=== PATIENT | female | born 1945 | race Caucasian/White ===

== ENCOUNTER 2017-06-28 19:07 | Inpatient (IN) | payer MEDICARE ==
[2017-06-28] MEDS ORDERED: Lorazepam 2 MG/ML VIAL ONE (20:42)
[2017-06-28 20:45] LABS: #Basophils 0.1 thou/uL (0.0-0.2); #Lymphocytes 1.9 thou/uL (1.20-3.40); #Monocytes 0.3 thou/uL (0.11-0.59); #Neutrophils 10.6 thou/uL (1.40-6.50); %Basophils 0.5 % (0.0-1.0); %Lymphocytes 14.6 % (21.0-51.0); %Monocytes 2.6 % (0.0-10.0); Hematocrit 38.9 % (36.0-47.0); Red Blood Cell (RBC) Count 4.58 mill/uL (4.20-5.40); White Blood Cell (WBC) Count 12.9 thou/uL (4.8-10.8)
[2017-06-28 21:00] LABS: Anion Gap 18 mmol/L (10-20); BUN (Urea Nitrogen) 9 mg/dL (9.8-20.1); Calc. Creatinine Clearance 0 mL/min (70-130); Calcium 9.2 mg/dL (7.8-10.44); Carbon Dioxide 26 mmol/L (23-31); Chloride 75 mmol/L (98-107); Estimated GFR-MDRD Greater than 90
[2017-06-28 21:04] LABS: Troponin I Less than 0.010 ng/mL (< 0.028)
--- NOTE | 2017-06-28 21:29 | RAD ---
TWO VIEWS CHEST 06/28/17 PROVIDED CLINICAL HISTORY: Cough and congestion. FINDINGS: Comparison 06/13/15. The cardiac silhouette appears enlarged. There is no focal consolidation, pleural fluid or pneumothor ax apparent. IMPRESSION: No evidence for an acute cardiopulmonary process. POS: [facility]
[2017-06-28 23:00] LABS: Bilirubin Negative (Negative); Blood, Urine Negative (Negative); Glucose, Urine (Dipstick) Negative (Negative); Ketone, Urine Negative (Negative); Nitrite Negative (Negative); Protein, Urine (Dipstick) Negative (Neg-Trace); Urobilinogen 0.2 mg/dL (0.2-1.0)
[2017-06-28 23:15] LABS: Anion Gap 16 mmol/L (10-20); BUN (Urea Nitrogen) 8 mg/dL (9.8-20.1); Calc. Creatinine Clearance 0 mL/min (70-130); Calcium 8.5 mg/dL (7.8-10.44); Carbon Dioxide 25 mmol/L (23-31); Chloride 80 mmol/L (98-107); Estimated GFR-MDRD Greater than 90
[2017-06-29] MEDS ORDERED: Ondansetron ODT 4 MG TAB SL PRN (04:48)
[2017-06-29] MEDS ORDERED: Sodium Chloride 0.9% 1,000 ML IV SCH (04:48)
[2017-06-29] MEDS ORDERED: Ondansetron HCl/PF 4 MG/2 ML Vial IVP PRN ×2 (04:48→08:06)
[2017-06-29 05:01] VITALS: BMI 35.2
[2017-06-29 07:48] LABS: Anion Gap 10 mmol/L (10-20); BUN (Urea Nitrogen) 8 mg/dL (9.8-20.1); Calc. Creatinine Clearance 114 mL/min (70-130); Calcium 8.9 mg/dL (7.8-10.44); Carbon Dioxide 29 mmol/L (23-31); Chloride 87 mmol/L (98-107); Estimated GFR-MDRD Greater than 90
[2017-06-29] MEDS ORDERED: Calcium Carbonate 500 MG ChewTAB PO PRN (08:06)
[2017-06-29] MEDS ORDERED: Ondansetron ODT 4 MG TAB PO PRN (08:06)
[2017-06-29] MEDS ORDERED: Nitroglycerin 0.4 MG TAB (25 Tab Bottle) PO PRN (08:06)
[2017-06-29] MEDS ORDERED: Senokot 8.6 MG TAB PO PRN (08:06)
[2017-06-29] MEDS ORDERED: 1/2 NS w/KCL 20 mEq 1,000 ML IV SCH ×2 (08:15)
[2017-06-29 08:39] LABS: Troponin I 0.013 ng/mL (< 0.028)
[2017-06-29 08:49] LABS: Magnesium 1.9 mg/dL (1.6-2.6); Phosphorus 2.9 mg/dL (2.3-4.7)
[2017-06-29] MEDS ORDERED: Famotidine 20 MG TAB PO SCH (09:00)
[2017-06-29] MEDS ORDERED: Docusate 100 MG CAP PO SCH (09:00)
[2017-06-29] MEDS ORDERED: Dextrose 5% in Water 1,000 ML IV SCH (10:30)
--- NOTE | 2017-06-29 10:33 | CON ---
DATE OF CONSULTATION: 06/29/2017 REASON FOR CONSULTATION: Hyponatremia. HISTORY OF PRESENT ILLNESS: This is a very pleasant 72-year-old female who presented to the hospital for lightheadedness. The patient was noted to have a sodium of 115 yesterday which increased to 123 , so I was consulted. The patient denies headache, numbness, tingling or weakness. Denies any nause a, vomiting or chest pain. 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 SOCIAL HISTORY: No alcohol or drug use. FAMILY HISTORY: Negative for ESRD. ALLERGIES: Reviewed. MEDICATIONS: List reviewed. REVIEW OF SYSTEMS: A 15-point review of systems was performed and negative except positives noted ab ove. GENERAL: Weakness- HEAD: Headache- NECK: No swelling or lumps. NOSE: No epistaxis or discharge. EYES: No diplopia or pain. RESPIRATORY: Dyspnea- CARDIOVASCULAR: Chest pain- GASTROINTESTINAL: Nausea- /EATING DISORDER SPECIALIST: Hematuria- MUSCULOSKELETAL: No joint pain. NEUROPSYCHIATIC SYSTEMS: No suicidal ideation. No ideation. SKIN: Denies any rash or ulcer. CONSTITUTIONAL: No fever or chills. PHYSICAL EXAMINATION: GENERAL: Patient is awake, alert. VITAL SIGNS: Afebrile, pulse 75, breathing 16, blood pressure 107/47. OBJECTIVE: See above. Awake, alert, in no acute distress. GENERAL APPEARANCE AND MENTAL STATUS: Fair. HEAD/NECK: Normocephalic. Atraumatic. EYES: EOMI. No deformity. EARS: Clear. No ulcers. NOSE: Intact. No lesions. MOUTH: Clear. No discharge. THROAT: Clear. No exudate. LUNGS: Clear. No crackles. CARDIAC: S1, S2. No rub. ABDOMEN: Benign. BS+. GENITALIA/RECTUM: Fierro absent. BACK/EXTREMITIES: Edema 0+ Ulcer- NEUROLOGICAL: Alert and motor intact. SKIN: Rash- Bruise- LYMPHATICS: Edema- Ulcer- LABORATORY: Sodium 123. 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 Would recommend fluid restriction. I would recommend holding off on IV f luids and recheck the sodium at 4 p.m. The labs were drawn at 7:00 a.m. and I was consulted at 10:[address] Hampton. Please note the previous sodium at 11:00 p.m. last night was 107, so the patient has corrected sodium within reach. I would not correct the sodium any further. If the sodium incre ases any further I will start the patient on D5. Prognosis is very poor.
[2017-06-29] MEDS ORDERED: Dextrose 5% in Water 500 ML IV SCH (11:30)
[2017-06-29 11:51] LABS: Osmolality, Urine 72 mOsm/kg (300-900)
[2017-06-29 11:54] LABS: Sodium, Urine Less than 20 mmol/L (Not Available)
[2017-06-29 12:32] LABS: Anion Gap 14 mmol/L (10-20); BUN (Urea Nitrogen) 7 mg/dL (9.8-20.1); Calc. Creatinine Clearance 108 mL/min (70-130); Calcium 9.4 mg/dL (7.8-10.44); Carbon Dioxide 25 mmol/L (23-31); Chloride 88 mmol/L (98-107); Estimated GFR-MDRD Greater than 90
[2017-06-29] MEDS ORDERED: Amlodipine 5 MG TAB PO SCH (13:00)
[2017-06-29] MEDS ORDERED: Potassium Chloride 10 MEQ TAB PO SCH (13:45)
--- NOTE | 2017-06-29 13:47 | HP ---
DATE OF ADMISSION: 06/29/2017 PRIMARY CARE PHYSICIAN: Dr. Michele. CHIEF COMPLAINT: Generalized weakness. CODE STATUS: FULL CODE. SURROGATE DECISION-MAKER: Patient makes her own decisions with the help of her family. History obta ined from the patient and the at the bedside. HISTORY OF PRESENT ILLNESS: Patient is a 72-year-old female with hypertension, on HCTZ with recent u pper respiratory tract infection, presented to the emergency room with above complaints. Over the last 10 days, patient had upper respiratory tract infection along with sinus tenderness and headache. Her symptoms progressively got worse for which she was evaluated by her primary care physi jackelyn 3 days ago and was started on azithromycin with the steroids. Her sinus tenderness somewhat imp roved after the antibiotics. However, her generalized weakness and fatigue progressively got worse. She has not been eating and drinking well over the past couple of days. She denies any fevers, chil ls. She had nausea; however, denies any vomiting. She has chronically loose stool from IBS, which h as not changed recently. She denied any recent immobilization, travel, chest pain or palpitations. In the emergency room, her workup was consistent with hyponatremia with sodium of 115. Her chest x-r ay was negative for infiltrate. EKG showed sinus rhythm without significant ST-T wave changes. She received Ativan 1 mg with 1 liter IV fluids in the emergency room. PAST MEDICAL HISTORY: 1. Hypertension. 2. IBS. 3. Pneumonia x4. PAST SURGICAL HISTORY: 1. Removal of the right kidney. 2. Cholecystectomy. 3. Tonsillectomy. 4. Appendectomy. 5. Tubal ligation. 6. [place] teeth removal. 7. Left knee surgery in 2011 for meniscus repair. ALLERGIES: The patient is allergic to PENICILLIN and SULFA. HOME MEDICATIONS: Avapro 150 mg daily, amlodipine 10 mg daily, clonidine was started 2 days ago by h er PCP due to elevated blood pressure, azithromycin 250 mg daily, Nexium 40 mg daily, HCTZ 12.5 mg da mallory, and Reglan 5 mg p.o. before meals. SOCIAL HISTORY: Patient currently lives at home. No smoking, alcohol or drug use. FAMILY HISTORY: Father with heart disease. REVIEW OF SYSTEMS: The following complete review of systems was negative, unless otherwise mentioned in the HPI or below: Constitutional: Weight loss or gain, ability to conduct usual activities. Skin: Rash, itching. Eyes: Double vision, pain. ENT/Mouth: Nose bleeding, neck stiffness, pain, tenderness. Cardiovascular: Palpitations, dyspnea on exertion, orthopnea. Respiratory: Shortness of breath, wheezing, cough, hemoptysis, fever or night sweats. Gastrointestinal: Poor appetite, abdominal pain, heartburn, nausea, vomiting, constipation, or diarr hea. Genitourinary: Urgency, frequency, dysuria, nocturia. Musculoskeletal: Pain, swelling. Neurologic/Psychiatric: Anxiety, depression. Allergy/Immunologic: Skin rash, bleeding tendency. PHYSICAL EXAMINATION: VITAL SIGNS: In the emergency room showed temperature 98.2, respirations 18, pulse of 86, blood pres sure of 133/106 with O2 saturation 97% on room air. GENERAL: A 72-year-old female in no apparent distress, feels slightly better. HEENT: Head is atraumatic, normocephalic. Sclerae are anicteric. Moist mucous membranes. No oral lesion. There is some erythema over the pharynx noted. NECK: Supple, no JVD, no lymph nodes. LUNGS: Clear to auscultation bilaterally. HEART: S1 and S2 present. Regular rate and rhythm. No rubs or gallops. ABDOMEN: Soft, nontender, bowel sounds present. EXTREMITIES: No edema or calf tenderness. NEUROLOGIC: Grossly nonfocal, moves all four extremities. Power was 5/5 in all extremities. Finger -to-nose and [id number] test was normal. SKIN: Warm and dry. LYMPH NODES: No palpable lymph nodes in the neck. PERIPHERAL VASCULAR: Radial pulses palpable bilaterally. MUSCULOSKELETAL: No joint swelling or tenderness. LABORATORY DATA AND IMAGING DATA: Laboratory findings as discussed above. Last sodium was 124 with potassium 3.3. Cortisol was 13.9. BNP 42.6. Troponins were normal. TSH was normal. EKG by my rev iew showed sinus rhythm with left axis deviation without significant ST-T wave changes. Chest x-ray by my review was negative for infiltrate. IMPRESSION: 1. Hypotonic hyponatremia. Serum osmolarity was 252. Multifactorial. Probably secondary to poor o ral intake in addition to hydrochlorothiazide. 2. Hypokalemia. 3. Dehydration. 4. Obesity with body mass index of 35.2 5. Recent upper respiratory tract infection on azithromycin. 6. Irritable bowel syndrome. 7. Leukocytosis with WBC of 12.9, probably secondary to upper respiratory tract infection. Urinalys is was negative. 8. Hypertension. 9. Gastroesophageal reflux disease. PLAN: 1. The patient will be monitored in the telemetry unit. We will continue azithromycin that was star lyssa by a PCP 2 to 3 days ago. Replace potassium. Her sodium has been corrected too fast. For this reason, we changed the fluid to D5 water. Nephrology consult. We will resume amlodipine for blood p ressure and hold HCTZ and Avapro for now. P.r.n. antihypertensives. 2. Deep venous thrombosis prophylaxis. 3. Plan of care was discussed with the patient and the family in detail and they stated pérez ramirez
[2017-06-29 15:22] LABS: Anion Gap 12 mmol/L (10-20); BUN (Urea Nitrogen) 9 mg/dL (9.8-20.1); Calc. Creatinine Clearance 103 mL/min (70-130); Calcium 9.1 mg/dL (7.8-10.44); Carbon Dioxide 32 mmol/L (23-31); Chloride 89 mmol/L (98-107); Estimated GFR-MDRD Greater than 90
[2017-06-29] MEDS ORDERED: Metoclopramide HCl 10 MG TAB PO SCH (17:00)
[2017-06-29] MEDS: Potassium Chloride 10 MEQ TAB PO SCH (17:41)
[2017-06-29] MEDS: Dextrose 5% in Water 500 ML IV SCH ×2 (17:41→22:17)
[2017-06-29 19:21] LABS: Anion Gap 14 mmol/L (10-20); BUN (Urea Nitrogen) 8 mg/dL (9.8-20.1); Calc. Creatinine Clearance 91 mL/min (70-130); Carbon Dioxide 26 mmol/L (23-31); Chloride 95 mmol/L (98-107); Estimated GFR-MDRD 83
[2017-06-29] MEDS: guaiFENesin ER 600 MG TAB PO SCH (21:36)
[2017-06-29] MEDS: Amlodipine 5 MG TAB PO SCH (21:36)
[2017-06-29] MEDS: Enoxaparin Sodium 40 MG/0.4 ML SYRINGE SC SCH (21:37)
[2017-06-29] MEDS ORDERED: Desmopressin Acetate 4 mcg/ml (1ml Chg) 10ml Vial SC SCH (21:45)
[2017-06-29] MEDS: D5 1/4 NS 1,000 ML IV SCH (21:56)
[2017-06-29 22:36] LABS: Anion Gap 13 mmol/L (10-20); BUN (Urea Nitrogen) 10 mg/dL (9.8-20.1); Calc. Creatinine Clearance 101 mL/min (70-130); Calcium 9.1 mg/dL (7.8-10.44); Carbon Dioxide 28 mmol/L (23-31); Chloride 95 mmol/L (98-107); Estimated GFR-MDRD Greater than 90
[2017-06-29 23:17] LABS: Anion Gap 11 mmol/L (10-20); BUN (Urea Nitrogen) 10 mg/dL (9.8-20.1); Calc. Creatinine Clearance 108 mL/min (70-130); Calcium 8.6 mg/dL (7.8-10.44); Carbon Dioxide 29 mmol/L (23-31); Chloride 95 mmol/L (98-107); Estimated GFR-MDRD Greater than 90
[2017-06-30 05:24] LABS: #Basophils 0.1 thou/uL (0.0-0.2); #Eosinphils 0.1 thou/uL (0.0-0.7); #Lymphocytes 2.5 thou/uL (1.20-3.40); #Monocytes 0.8 thou/uL (0.11-0.59); #Neutrophils 6.7 thou/uL (1.40-6.50); %Basophils 0.6 % (0.0-1.0); %Eosinophils 1.1 % (0.0-10.0); %Lymphocytes 24.6 % (21.0-51.0); %Monocytes 7.5 % (0.0-10.0); Hematocrit 37.3 % (36.0-47.0); Mean Platelet Volume 6.4 fL (7.4-10.4); Red Blood Cell (RBC) Count 4.11 mill/uL (4.20-5.40); White Blood Cell (WBC) Count 10.1 thou/uL (4.8-10.8)
[2017-06-30] MEDS: D5 1/4 NS 1,000 ML IV SCH (05:30)
[2017-06-30] MEDS: Acetaminophen 325 MG TAB PO PRN ×2 (05:34→11:31)
[2017-06-30 05:45] LABS: ALT (SGPT) 17 U/L (8-55); AST (SGOT) 15 U/L (5-34); Alkaline Phosphatase 100 U/L (40-150); Anion Gap 11 mmol/L (10-20); BUN (Urea Nitrogen) 9 mg/dL (9.8-20.1); Bilirubin, Total 0.4 mg/dL (0.2-1.2); Calc. Creatinine Clearance 110 mL/min (70-130); Calcium 8.5 mg/dL (7.8-10.44); Carbon Dioxide 29 mmol/L (23-31); Chloride 91 mmol/L (98-107); Estimated GFR-MDRD Greater than 90; Magnesium 2.2 mg/dL (1.6-2.6); Phosphorus 2.6 mg/dL (2.3-4.7); Protein, Total 6.6 g/dL (6.0-8.3)
[2017-06-30] MEDS: Loratadine 10 MG TAB PO SCH (08:01)
[2017-06-30] MEDS: Amlodipine 5 MG TAB PO SCH ×2 (08:01→20:19)
[2017-06-30] MEDS: Potassium Chloride 10 MEQ TAB PO SCH ×3 (08:01→17:38)
[2017-06-30] MEDS: cloNIDine 0.1 MG TAB PO PRN ×2 (08:02→12:29)
[2017-06-30] MEDS: guaiFENesin ER 600 MG TAB PO SCH ×2 (08:03→20:17)
[2017-06-30] MEDS ORDERED: ALPRAZolam 0.25 MG TAB PO PRN (09:32)
--- NOTE | 2017-06-30 14:25 | CT ---
CT BRAIN WITHOUT CONTRAST: Date: 06/30/17 HISTORY: Headache, eye twitching, ringing in ear. COMPARISON: CT brain dated 05/08/03. FINDINGS: No acute territorial infarct or hemorrhage. Moderate microvascular ischemic changes of subcortical an d deep white matter. No midline shift or mass effect. Calvarium is intact. Paranasal sinuses and mast oids are clear. IMPRESSION: 1. No acute intracranial abnormality. 2. Mildly progressive microvascular ischemic changes from 2002. POS: [facility]
[2017-06-30] MEDS ORDERED: Azithromycin 250 MG TAB PO SCH (17:00)
--- NOTE | 2017-06-30 19:46 | PRG ---
DATE OF SERVICE: 06/30/2017 SUBJECTIVE: Patient was seen and examined at bedside and overnight events noted. Patient denies any shortness of breath or chest pain or palpitation. No history of nausea or vomiting or diarrhea or f ever or chills or cramps. OBJECTIVE: GENERAL: This is a elderly female, in no apparent distress. VITAL SIGNS: Temperature 97.8, pulse 62, respiratory 18, blood pressure 140/65. HEENT: Atraumatic, normocephalic. Oral mucosa is moist. NECK: Supple. CARDIOVASCULAR: S1, S2 heard. Rate and rhythm regular. RESPIRATORY: Clear to auscultation. GASTROINTESTINAL: Abdomen is soft. MUSCULOSKELETAL: No tenderness, no edema. DERMATOLOGIC: No skin rash. NEUROLOGIC: Alert and awake and oriented x3. No focal neurologic deficits. Moving all the extremit ies. PSYCHIATRIC: Mood and affect normal. LABORATORY DATA: Sodium is 128, potassium is 3.6. ASSESSMENT AND PLAN: 1. Hyponatremia, most likely from hypovolemia with appropriate correction now. We will stop IV flui ds and monitor sodium. We will recheck sodium in the evening. 2. Hypochloremia. 3. Edema. 4. Hypertension. Plan is to monitor sodium closely with close sodium with appropriate correction. We will follow.
[2017-06-30] MEDS: Enoxaparin Sodium 40 MG/0.4 ML SYRINGE SC SCH (20:17)
[2017-06-30 20:40] LABS: Anion Gap 12 mmol/L (10-20); BUN (Urea Nitrogen) 9 mg/dL (9.8-20.1); Calc. Creatinine Clearance 111 mL/min (70-130); Calcium 8.8 mg/dL (7.8-10.44); Carbon Dioxide 26 mmol/L (23-31); Chloride 86 mmol/L (98-107); Estimated GFR-MDRD Greater than 90
--- NOTE | 2017-06-30 22:13 | PDOC.PN ---
- Subjective Encounter Start Date: 06/30/17 Encounter Start Time: 18:00 Patient seen and examined. No new complaints. No overnight events. Had some headache earlier - CT brain negative - Objective Resuscitation Status: Resuscitation Status FULL:Full Resuscitation MAR Reviewed: Yes Vital Signs & Weight: Vital Signs (12 hours) Temp Pulse Pulse Pulse Pulse Resp BP 06/30/17 16:50 67 72 70 152/70 H 06/30/17 15:45 97.8 F 62 18 06/30/17 13:34 65 06/30/17 11:10 97.4 F L 73 16 06/30/17 10:51 BP BP BP Pulse Ox Pulse Ox Pulse Ox 06/30/17 16:50 181/79 H 159/69 H 97 97 06/30/17 15:45 140/65 96 06/30/17 13:34 135/61 06/30/17 11:10 194/77 H 97 06/30/17 10:51 98 Weight Weight 170 lb 7 oz I&O: 06/29/17 06/30/17 07/01/17 06:59 06:59 06:59 Intake Total 617 409 5177 Output Total 0 3000 1200 Balance 230 -2280 2540 Result Diagrams: 06/30/17 05:06 07/01/17 10:42 EKG Reviewed by me: Yes (Tele SR) Phys Exam - Physical Examination Constitutional: NAD Respiratory: no wheezing, no rales, no rhonchi, clear to auscultation bilateral Cardiovascular: RRR, no significant murmur, no rub no heaves Gastrointestinal: soft, non-tender, positive bowel sounds Musculoskeletal: no edema Neurological: non-focal, normal sensation, moves all 4 limbs Psychiatric: normal affect, A&O x 3 Dx/Plan - Plan cont current plan of care, DVT proph w/lovenox, DVT proph w/SCDs IMPRESSION: 1. Hypotonic hyponatremia. 2. Hypokalemia. replaced 3. Dehydration. 4. Obesity with body mass index of 35.2 5. Recent upper respiratory tract infection on azithromycin. 6. Irritable bowel syndrome. 7. Hypertension. 8. Gastroesophageal reflux disease. PLAN: * s/p Desmopressin per Nephro * AM labs * Repeat Sodium at 2000 per Nephrology * Cont to monitor * Resume home BP meds * Add PRN HTN meds Review of Systems - Review of Systems Respiratory: negative: Cough, Dry, Shortness of Breath, Hemoptysis, SOB with Excertion, Pleuritic Pain, Sputum, Wheezing Cardiovascular: negative: chest pain, palpitations, orthopnea, paroxysmal nocturnal dyspnea, edema, light headedness - Medications/Allergies Allergies/Adverse Reactions: Allergies Allergy/AdvReac Type Severity Reaction Status Date / Time Penicillins Allergy Verified 12/09/12 17:57 Sulfa (Sulfonamide Allergy Verified 12/09/12 17:57 Antibiotics) Medications: Current Medications Acetaminophen (Tylenol) 650 mg PO Q4H PRN PRN Reason: Headache/Fever or Pain Last Admin: 06/30/17 11:31 Dose: 650 mg Alprazolam (Xanax) 0.25 mg PO BIDPRN PRN PRN Reason: Anxiety Last Admin: 06/30/17 13:32 Dose: 0.25 mg Amlodipine Besylate (Norvasc) 5 mg PO BID [facility] Last Admin: 06/30/17 20:19 Dose: 5 mg Azithromycin (Zithromax) 250 mg PO [facility] Last Admin: 06/30/17 17:51 Dose: 250 mg Calcium Carbonate (Tums) 1,000 mg PO Q4H PRN PRN Reason: Heartburn or Indigestion Clonidine (Catapres) 0.1 mg PO Q4H PRN PRN Reason: Systolic BP > 180 Last Admin: 06/30/17 12:29 Dose: 0.1 mg Enoxaparin Sodium (Lovenox) 40 mg SC 2100 [facility] Last Admin: 06/30/17 20:17 Dose: 40 mg Sodium Chloride (Normal Saline 0.9%) 500 mls @ 50 mls/hr IV .Q10H [facility] Stop: 07/01/17 08:01 Irbesartan (Avapro) 150 mg PO DAILY [facility] Loratadine (Claritin) 10 mg PO DAILY [facility] Last Admin: 06/30/17 08:01 Dose: 10 mg Nitroglycerin (Nitrostat) 0.4 mg PO Q5MIN PRN PRN Reason: Chest Pain Ondansetron HCl (Zofran Odt) 4 mg PO Q6H PRN PRN Reason: Nausea/Vomiting Ondansetron HCl (Zofran) 4 mg IVP Q6H PRN PRN Reason: Nausea/Vomiting Last Admin: 06/30/17 08:06 Dose: 4 mg Pantoprazole Sodium (Protonix) 40 mg PO 2100 [facility] Last Admin: 06/30/17 20:18 Dose: 40 mg Senna (Senokot) 2 tab PO HSPRN PRN PRN Reason: Constipation
[2017-06-30] MEDS: Sodium Chloride 0.9% 500 ML IV SCH (22:25)
[2017-07-01 06:29] LABS: Anion Gap 10 mmol/L (10-20); BUN (Urea Nitrogen) 7 mg/dL (9.8-20.1); Calc. Creatinine Clearance 110 mL/min (70-130); Calcium 9.2 mg/dL (7.8-10.44); Carbon Dioxide 29 mmol/L (23-31); Estimated GFR-MDRD Greater than 90
[2017-07-01 06:32] LABS: Chloride 93 mmol/L (98-107)
[2017-07-01] MEDS: Sodium Chloride 0.9% 500 ML IV SCH (08:17)
[2017-07-01] MEDS: Amlodipine 5 MG TAB PO SCH ×3 (08:22→13:09)
[2017-07-01] MEDS: Loratadine 10 MG TAB PO SCH (08:23)
[2017-07-01 11:10] LABS: Anion Gap 14 mmol/L (10-20); BUN (Urea Nitrogen) 9 mg/dL (9.8-20.1); Calc. Creatinine Clearance 92 mL/min (70-130); Calcium 9.7 mg/dL (7.8-10.44); Carbon Dioxide 24 mmol/L (23-31); Chloride 94 mmol/L (98-107); Estimated GFR-MDRD 86
[2017-07-01] MEDS ORDERED: Potassium Chloride 10 MEQ TAB PO SCH (11:30)
[2017-07-01 11:55] VITALS: BP 182/79; TEMP 98.2
[2017-07-01] MEDS: cloNIDine 0.1 MG TAB PO PRN (13:11)
--- NOTE | 2017-07-01 19:59 | DIS ---
DATE OF DISCHARGE: 07/01/2017 DISCHARGE DISPOSITION: Home. FOLLOWUP: 1. Follow up with primary care physician, Dr. Byron Michele in 1 week. 2. Follow up with Dr. Key on next . 3. Base met on next Sunday is recommended. Results to be faxed to Dr. Key. ALLERGIES: The patient is allergic to PENICILLIN and SULFA. The patient was seen and examined on the day of discharge. Denies any new complaints. No chest pain , shortness of breath, palpitations. DISCHARGE MEDICATIONS: 1. Amlodipine 10 mg daily. 2. Clonidine 0.1 mg daily. Please note that the patient takes clonidine only as needed. 3. Irbesartan 150 mg daily. 4. Reglan 5 mg a.c. 5. Nexium 40 mg daily. 6. Lomotil as needed. INPATIENT CONSULTANTS: Nephrology, Dr. Key. BRIEF HOSPITAL COURSE: The patient is a 72-year-old female with hypertension, currently on HCTZ with recent upper respiratory tract infection on azithromycin, presented to the emergency room with gener alized weakness. Workup in the emergency room was consistent with severe hyponatremia with sodium of 117 with serum osmolarity of 252. She was monitored in the intermediate care unit. Fluids and sodi um was managed per Nephrology. She was then transferred to monitored floor. Sodium on the day of is 129. The patient has been cleared by Nephrology for discharge. HCTZ has been discontinue d. She has completed antibiotics for a recent upper respiratory tract infection. She has been clear ed by consultants for discharge. SIGNIFICANT LABORATORY DATA: 1. TSH 2.35. 2. Cortisol level 13.9. Troponins were negative. BNP 42.6. Potassium on the day of discharge is 3 .4. 3. Urine osmolality 72, urine sodium was less than 20. Plan of care was discussed with the patient and the family in detail. She stated understanding. DIAGNOSTIC TESTS: Chest x-ray was negative for infiltrate. CT scan of the brain, which was done for persistent headache was negative for acute findings. It showed progressive microvascular ischemic c hanges compared to 2003. Primary care physician is advised to follow. FINAL DIAGNOSES: 1. Hypotonic hyponatremia, probably due to poor oral intake in addition to hydrochlorothiazide. Ple ase note that HCTZ has been discontinued. 2. Hypokalemia. 3. Dehydration. 4. Obesity with a BMI of 35.2. 5. Recent upper respiratory tract infection. The patient completed azithromycin while she was in [facility]. 6. Irritable bowel syndrome. 7. Leukocytosis, probably secondary to upper respiratory tract infection. 8. Hypertension. 9. Gastroesophageal reflux disease. 10. PENICILLIN and SULFA allergy. Plan of care was discussed with the patient in detail. She stated understanding.
--- NOTE | 2017-07-01 21:20 | PRG ---
DATE OF SERVICE: 07/01/2017 SUBJECTIVE: Patient was seen and examined at bedside and overnight events noted. Patient denies any shortness of breath or chest pain or palpitation. No history of nausea or vomiting or diarrhea or f ever or chills or cramps. OBJECTIVE: GENERAL: This is an obese female, in no apparent distress. VITAL SIGNS: Temperature 98.2, pulse 70, respiratory rate 19, blood pressure 182/79. HEENT: Atraumatic, normocephalic, Oral mucosa is moist. NECK: Supple. CARDIOVASCULAR: S1, S2 heard. Rate and rhythm regular. RESPIRATORY: Clear to auscultation. GASTROINTESTINAL: Abdomen is soft. MUSCULOSKELETAL: No tenderness, No edema. DERMATOLOGIC: No skin rash. NEUROLOGIC: Alert and awake and oriented x3, No focal neurologic deficits. Moving all the extremiti es. PSYCHIATRIC: Mood and affect normal. LABORATORY DATA: Potassium is 3.4, BUN is 9, creatinine 0.67. Sodium is 129. ASSESSMENT AND PLAN: 1. Hyponatremia. Sodium with appropriate correction. Okay to discharge home, most likely from hypo volemia. Okay to hold hydrochlorothiazide and monitor blood pressure. 2. Hypertension. Hold hydrochlorothiazide and use chlorthalidone p.r.n. for high blood pressure. 3. Edema, currently stable. Okay to discharge home. I advised adequate hydration and follow up with the clinic in 1 week with BM P done on Sunday. We will follow.
== END 2017-07-01 15:46 | disposition home or self-care (01) | DRG 641 ==
LOC: SCSER 19:07 → IMCU/EMU 06-29 01:28 → 2NO 06-29 17:58
PROVIDERS: ADMIT Internal Medicine; ATTEND Internal Medicine
DX: E87.1 Hypo-osmolality and hyponatremia (principal); E86.0 Dehydration; E66.9 Obesity, unspecified; E87.8 Other disorders of electrolyte and fluid balance, not elsewhere classified; I10 Essential (primary) hypertension; K58.9 Irritable bowel syndrome, unspecified; Z90.5 Acquired absence of kidney; Z88.0 Allergy status to penicillin; Z88.2 Allergy status to sulfonamides; E87.6 Hypokalemia; T50.2X5A Adverse effect of carbonic-anhydrase inhibitors, benzothiadiazides and other diuretics, initial encounter; Z68.34 Body mass index [BMI] 34.0-34.9, adult; K21.9 Gastro-esophageal reflux disease without esophagitis; E86.1 Hypovolemia; J06.9 Acute upper respiratory infection, unspecified; F41.9 Anxiety disorder, unspecified
CPT/HCPCS: 36415; 36416; 70450; 71020; 80048; 80053; 81003; 82533; 82553; 83735; 83880; 83930; 83935; 84100; 84300; 84443; 84484; 85025; 93005; 94760; 96361; 96374; G8978-GP-CJ; G8979-GP-CJ; G8980-GP-CJ; J1650; J2060; J2405; J2597

== ENCOUNTER 2017-08-30 10:01 | Outpatient (CLI) | payer MEDICARE | END 2017-08-30 10:02 | disposition home or self-care (01) | LOC: BICMAMMO 10:01 | PROVIDERS: ATTEND Obstetrics & Gynecology | DX: Z12.31 Encounter for screening mammogram for malignant neoplasm of breast (principal) | CPT/HCPCS: 77063; 77067 ==

== ENCOUNTER 2017-11-14 13:43 | Emergency (ER) | payer MEDICARE | END 2017-11-14 14:28 | disposition home or self-care (01) | LOC: SCSER 13:43 | DX: J45.909 Unspecified asthma, uncomplicated (principal); I10 Essential (primary) hypertension; Z79.899 Other long term (current) drug therapy | CPT/HCPCS: 99284 ==

== ENCOUNTER 2018-03-15 10:28 | Outpatient (CLI) | payer MEDICARE ==
--- NOTE | 2018-03-15 11:11 | RAD ---
PA AND LATERAL CHEST: HISTORY: A 72-year-old female with a history of dyspnea. COMPARISON: 11/14/2017 FINDINGS: Heart size is within normal limits. There are some mild, stable, linear, chronic lung changes. Mild right hemidiaphragm elevation. No confluent pneumonia, overt edema, pleural effusion, or other acut e process. IMPRESSION: 1. Mild chronic changes. 2. No acute intrathoracic disease. POS: [facility]
== END 2018-03-15 10:29 | disposition home or self-care (01) ==
LOC: RAD 10:28
PROVIDERS: ATTEND Internal Medicine
DX: R06.00 Dyspnea, unspecified (principal)
CPT/HCPCS: 71046

== ENCOUNTER 2018-04-04 19:30 | Outpatient (CLI) | payer MEDICARE | END 2018-04-04 19:31 | disposition home or self-care (01) | LOC: SLEEPLAB 19:30 | PROVIDERS: ATTEND Internal Medicine | DX: G47.33 Obstructive sleep apnea (adult) (pediatric) (principal); R53.83 Other fatigue; K21.9 Gastro-esophageal reflux disease without esophagitis; R35.1 Nocturia; I10 Essential (primary) hypertension; G45.9 Transient cerebral ischemic attack, unspecified; E11.9 Type 2 diabetes mellitus without complications; R06.83 Snoring; E66.9 Obesity, unspecified; Z68.31 Body mass index [BMI] 31.0-31.9, adult | CPT/HCPCS: 95811 ==

== ENCOUNTER 2018-04-22 16:02 | Outpatient (CLI) | payer MEDICARE ==
--- NOTE | 2018-04-22 17:02 | RAD ---
LUMBAR SPINE FIVE VIEWS: HISTORY: Left-sided sciatica. Severe back pain x4 weeks. Pain radiates down the left buttock and hip. FINDINGS: Five lumbar type vertebral bodies. Vertebral body height is maintained. There is no fracture. Mode rate degenerative disk disease with loss of disk space height, osteophyte formation, and vacuum disk phenomenon at L4-L5. Similarly, there is sclerosis and vacuum disk phenomenon at L5-S1. In the neut ral position, mild straightening of normal lumbar lordosis without significant spondylolisthesis. No evidence of spondylosis on the oblique projections. IMPRESSION: Vacuum disk phenomenon and degenerative change at L3-L4 and L5-S1. POS: [facility]
== END 2018-04-22 16:03 | disposition home or self-care (01) ==
LOC: SCSRAD 16:02
PROVIDERS: ATTEND Orthopaedic Surgery
DX: M54.32 Sciatica, left side (principal); M47.896 Other spondylosis, lumbar region; M47.897 Other spondylosis, lumbosacral region
CPT/HCPCS: 72110

== ENCOUNTER 2018-06-03 08:24 | Outpatient (CLI) | payer MEDICARE ==
--- NOTE | 2018-06-03 11:32 | MRI ---
MRI LUMBAR SPINE WITHOUT CONTRAST: HISTORY: M51.16, radiculopathy. COMPARISON: Lumbar spine radiograph 04/22/2018. FINDINGS: The aortic contour is nonaneurysmal. No retroperitoneal adenopathy. No hydronephrosis. No marrow infiltrative process. There are Modic type I end plate changes at L3-4. The conus medullaris terminates near the superior end plate of L1. Levels are as follows: L1-2: Low-grade circumferential disk bulge. No significant neural foraminal or spinal canal narrowi ng. L2-3: There is moderate height loss with circumferential disk bulge, large volume. There is narrowi ng of the spinal canal to approximately 6 mm. There is also moderate bilateral neural foraminal narr owing with abutment of the exiting and traversing nerve rots. Moderate facet arthropathy. L3-4: Severe degenerative disk space height loss. Circumferential disk bulge. Moderate facet arthr opathy. There is narrowing of the spinal canal due to the disk bulge measuring 3 mm as well as incre ased posterior epidural fat. There is abutment of the exiting and traversing nerve roots bilaterally with moderate to severe neural foraminal narrowing. L4-5: Moderate degenerative disk desiccation. Moderate facet arthropathy. Circumferential disk bul ge, worse on the left subforaminal and extraforaminal regions. There is severe left and moderate rig ht-sided neural foraminal narrowing. There is abutment of the left exiting and traversing nerve root s. L5-S1: Severe degenerative disk space height loss. Increased epidural fat. Moderate facet arthropa thy. There is left subforaminal posterior disk-osteophyte complex. There is severe left and moderate right-sided neural foraminal narrowing with abutment of the left exiting and traversing nerve roots. IMPRESSION: Multilevel spondylosis as described with neural foraminal and spinal canal narrowing with multilevel nerve root abutment. POS: [facility]
== END 2018-06-03 08:25 | disposition home or self-care (01) ==
LOC: BICMRI 08:24
PROVIDERS: ATTEND Specialist
DX: M51.16 Intervertebral disc disorders with radiculopathy, lumbar region (principal); M47.26 Other spondylosis with radiculopathy, lumbar region; M48.061 Spinal stenosis, lumbar region without neurogenic claudication; M48.07 Spinal stenosis, lumbosacral region
CPT/HCPCS: 72148

== ENCOUNTER 2018-06-18 13:32 | Outpatient (CLI) | payer MEDICARE ==
--- NOTE | 2018-06-20 14:01 | PFT ---
PATIENT HISTORY: HEIGHT: 58 in WEIGHT: 160 SMOKER: NO HOW LONG: NA PACKS PER DAY PRODUCTIVE COUGH: LUNG DISEASE: PHYSICIAN INTERPRETATION FINAL REPORT: Patient had good effort and cooperation. PFT data: FVC 1.83 (84%), FEV1 1.48 (91%), FEV1/FVC 0.81 TLC 3.43 (85%), RV 1.09 (59%) DLCO 23.61 (131%) There is a symmetric reduction the both the FEV1 and the FVC. The ratio is suggestive of a restrictive profile. The total lung capacity is at the lower limits of normal, and there is a mild to moderate reduction in the residual volume. The diffusion capacity is slightly elevated. IMPRESSION: Overall, These pulmonary function studies are most consistent with mild restrictive lung disease with normal gas exchange. Body habitus maybe contributing to these findings. Clinical and radiographic correlation for interstitial process should be considered. No priors for comparison. Agriculture Mechanic: KIMBERLY Car Blocker: KIMBERLY TRUJILLO
== END 2018-06-18 13:33 | disposition home or self-care (01) ==
LOC: CP 13:32
PROVIDERS: ATTEND Internal Medicine
DX: R05 Cough (principal)
CPT/HCPCS: 94060; 94727; 94729

== ENCOUNTER 2018-08-08 14:14 | Outpatient (CLI) | payer MEDICARE ==
--- NOTE | 2018-08-08 14:55 | RAD ---
PA AND LATERAL CHEST: History: Cough, shortness of breath x 1 week. Comparison: 06-28-17 FINDINGS: Heart size is within normal limits. There are arthrosclerotic changes of the aorta. There is linear s carring in the lung bases. There are arthritic changes of the spine. IMPRESSION: No active intrathoracic disease. POS: [facility]
== END 2018-08-08 14:15 | disposition home or self-care (01) ==
LOC: SCSRAD 14:14
PROVIDERS: ATTEND Family Medicine
DX: J45.21 Mild intermittent asthma with (acute) exacerbation (principal)
CPT/HCPCS: 71046

== ENCOUNTER 2018-08-28 10:28 | Outpatient (CLI) | payer MEDICARE ==
--- NOTE | 2018-08-28 13:10 | RAD ---
FOUR VIEWS OF LUMBAR SPINE: History: Low back pain. Comparison: None. FINDINGS: Upright, lateral neutral, lateral extension, and lateral flexion views demonstrate five lumbar type v ertebral bodies. Mild leftward rotation of the lumbar spine. There are severe degenerative changes of L3-4 with loss of disc space height, endplate sclerosis and osteophyte formation. In the neutral position, there is 2.8 mm of anterolisthesis of L4 upon L5. Upon flexion there is 3.2 mm anterolisthesis. Upon extension anterolisthesis resolves. In the neutral position there is 3.3 mm anterolisthesis of L5 upon S1. Upon flexion and extension, sp ondylolisthesis is difficult to appreciate. IMPRESSION: Spondylolisthesis as above. POS: [facility]
== END 2018-08-28 10:29 | disposition home or self-care (01) ==
LOC: TBSIIMAG 10:28
PROVIDERS: ATTEND Surgery
DX: M51.16 Intervertebral disc disorders with radiculopathy, lumbar region (principal); M48.061 Spinal stenosis, lumbar region without neurogenic claudication; M43.16 Spondylolisthesis, lumbar region; M43.17 Spondylolisthesis, lumbosacral region
CPT/HCPCS: 72100

== ENCOUNTER 2018-09-10 10:43 | Outpatient (CLI) | payer MEDICARE ==
--- NOTE | 2018-09-10 14:59 | MMO ---
FILMS COMPARED: The present examination has been compared to prior imaging studies performed at [facility] on 04/15/2010, 05/09/2011, 05/09/2012, 05/10/2012, 05/21/2013, 07/23/2014, 08/11/2015, 08/15/2016 and 08/30/2017, and at [facility] on 07/16/2007, 04/08/2008 and 04/09/2009. MAMMOGRAM FINDINGS: There are scattered fibroglandular densities. Finding 1: There are benign appearing calcifications seen in both breasts. Finding 2: There is a biopsy clip seen in the left breast. There are no suspicious masses, calcifications or areas of architectural distortion. IMPRESSION: ALL ABOVE FINDINGS ARE BENIGN. A ROUTINE FOLLOW-UP MAMMOGRAM IN 1 YEAR IS RECOMMENDED. ACR BI-RADS Category 2 - Benign finding
== END 2018-09-10 10:44 | disposition home or self-care (01) ==
LOC: BICMAMMO 10:43
PROVIDERS: ATTEND Obstetrics & Gynecology
DX: Z12.31 Encounter for screening mammogram for malignant neoplasm of breast (principal); R92.1 Mammographic calcification found on diagnostic imaging of breast
CPT/HCPCS: 77063; 77067

== ENCOUNTER 2018-10-28 00:11 | Outpatient (CLI) | payer MEDICARE ==
[2018-10-28 12:31] LABS: Hemoglobin 12.4 g/dL (12.0-16.0); Mean Corpuscular HGB CONC 33.2 g/dL (32.0-36.0); Mean Corpuscular Hemoglobin 30.7 pg (27.0-31.0); Mean Corpuscular Volume 92.3 fL (78.0-98.0); Mean Platelet Volume 7.5 fL (7.4-10.4); Platelet Count 366 thou/uL (130-400); RBC Distribution Width 12.1 % (11.5-14.5); Red Blood Cell (RBC) Count 4.05 mill/uL (4.20-5.40); White Blood Cell (WBC) Count 10.7 thou/uL (4.8-10.8)
[2018-10-28 12:35] LABS: INR-International Normal Ratio 0.9; Prothrombin Time 12.3 SEC (12.0-14.7)
[2018-10-28 12:36] LABS: PTT 29.2 SEC (22.9-36.1)
[2018-10-28 12:51] LABS: Anion Gap 14 mmol/L (10-20); BUN (Urea Nitrogen) 20 mg/dL (9.8-20.1); Calc. Creatinine Clearance 0 mL/min (70-130); Calcium 9.8 mg/dL (7.8-10.44); Carbon Dioxide 29 mmol/L (23-31); Estimated GFR-MDRD 76; Glucose 71 mg/dL (83-110); Potassium 4.3 mmol/L (3.5-5.1)
[2018-10-28 12:53] LABS: Chloride 97 mmol/L (98-107); Sodium 136 mmol/L (136-145)
--- NOTE | 2018-10-29 22:57 | EKG ---
Test Reason : Blood Pressure : / mmHG Vent. Rate : 072 BPM Atrial Rate : 072 BPM P-R Int : 192 ms QRS Dur : 090 ms QT Int : 406 ms P-R-T Axes : 042 002 044 degrees QTc Int : 444 ms Sinus rhythm with marked sinus arrhythmia with occasional Premature atrial complexes Minimal voltage criteria for LVH, may be normal variant Borderline ECG When compared with ECG of 28-JUN-2017 20:19, Marked sinus arrhythmia and occational PAC's are now present. Confirmed by INDU BAUTISTA ([id number]) on 10/29/2018 10:57:49 PM Referred By: LISA Confirmed By:INDU BAUTISTA
== END 2018-10-28 00:12 | disposition home or self-care (01) ==
LOC: LABBT 00:11
PROVIDERS: ATTEND Surgery
DX: Z01.818 Encounter for other preprocedural examination (principal); M48.061 Spinal stenosis, lumbar region without neurogenic claudication; M54.16 Radiculopathy, lumbar region
CPT/HCPCS: 80048; 85027; 85610; 85730; 93005; 93010

== ENCOUNTER 2018-11-01 07:18 | Day surgery (SDC) | payer MEDICARE ==
[2018-10-28 10:30] VITALS: BMI 33.4
[2018-11-01] MEDS ORDERED: Levofloxacin 500 mg/D5W 100 ml Premix Bag ONE (08:24)
[2018-11-01] MEDS ORDERED: Clindamycin/D5W 900 mg/50 ml Premix Bag ONE (08:24)
[2018-11-01] MEDS ORDERED: Thrombin 5000 UNITS/5 ML VIAL ONE (09:34)
[2018-11-01] MEDS ORDERED: Sodium Chloride 0.9% 10 ML ONE (09:34)
[2018-11-01] MEDS ORDERED: Bacitracin Zinc Ointment 30 gm TUBE ONE (09:34)
[2018-11-01] MEDS ORDERED: Fentanyl 100 MCG/2 ML VIAL ONE ×5 (10:40→17:32)
[2018-11-01] MEDS ORDERED: Acetaminophen 325 MG TAB PO PRN (13:43)
[2018-11-01] MEDS ORDERED: Morphine 2 MG/ML SYRINGE SLOW IVP PRN (13:43)
[2018-11-01] MEDS ORDERED: Mag-Al 1200 mg/1200 mg/30 ML UDCUP PO PRN (13:43)
[2018-11-01] MEDS ORDERED: Milk Of Magnesia 30 ML UDCUP PO PRN (13:43)
[2018-11-01] MEDS ORDERED: Acetaminophen/Codeine 30-300mg Tablet PO PRN (13:43)
[2018-11-01] MEDS ORDERED: Fleet Enema 133 ML BOT PR PRN (13:43)
[2018-11-01] MEDS ORDERED: Bisacodyl 10 MG SUPP PR PRN (13:43)
[2018-11-01] MEDS ORDERED: Furosemide 20 MG TAB PO PRN (13:49)
[2018-11-01] MEDS ORDERED: Diphenoxylate HCl/Atropine Tablet PO PRN (13:49)
[2018-11-01] MEDS ORDERED: cloNIDine 0.1 MG TAB PO PRN ×2 (13:49→20:48)
[2018-11-01] MEDS ORDERED: Ondansetron PF 4 MG/2 ML Vial ONE (16:11)
[2018-11-01] MEDS ORDERED: Glycopyrrolate 0.2 MG/ML 5 ML SYRINGE ONE (16:11)
[2018-11-01] MEDS ORDERED: Metoclopramide HCl 10 MG/2 ML VIAL ONE (16:11)
[2018-11-01] MEDS ORDERED: Lidocaine 1% PF 5 ML VIAL ONE (16:11)
[2018-11-01] MEDS ORDERED: ePHEDrine 50 MG/ML VIAL ONE (16:11)
[2018-11-01] MEDS ORDERED: Rocuronium Bromide 10 MG/ML (10ML VIAL) ONE (16:11)
[2018-11-01] MEDS ORDERED: Dexamethasone 20 MG/5 ML VIAL ONE (16:11)
[2018-11-01] MEDS ORDERED: PROPOFOL 200 MG/20 ML VIAL ONE (16:11)
[2018-11-01] MEDS: Metoclopramide HCl 10 MG TAB PO SCH (18:26)
[2018-11-01] MEDS: Clindamycin/D5W 900 MG in Premix Bag 1 BAG IVPB SCH (18:26)
[2018-11-01] MEDS ORDERED: NIFEdipine XL 90 MG TAB PO SCH (21:00)
[2018-11-01] MEDS: HYDROcodone/Acetaminophen 7.5/325 mg Tablet PO PRN (21:09)
[2018-11-01] MEDS: Loratadine 10 MG TAB PO SCH (21:09)
[2018-11-01] MEDS: NIFEdipine XL 60 MG TAB PO SCH (21:10)
[2018-11-01] MEDS: Carvedilol 25 MG TAB PO SCH (21:11)
[2018-11-01] MEDS: tiZANidine HCl 4 MG TAB PO PRN (23:34)
[2018-11-02] MEDS: Clindamycin/D5W 900 MG in Premix Bag 1 BAG IVPB SCH (00:52)
[2018-11-02] MEDS: HYDROcodone/Acetaminophen 7.5/325 mg Tablet PO PRN ×3 (03:10→15:10)
[2018-11-02] MEDS: Metoclopramide HCl 10 MG TAB PO SCH ×3 (06:25→18:24)
[2018-11-02] MEDS: traMADol HCl 50 MG TAB PO PRN ×2 (06:26→20:35)
[2018-11-02 06:52] LABS: Sodium 134 mmol/L (136-145)
--- NOTE | 2018-11-02 08:56 | PRG ---
DATE OF SERVICE: 11/02/2018 SUBJECTIVE: The patient is a 73-year-old female, status post L4-L5 and L5-S1 laminectomy, postoperative day #1. Following the surgery, she was transitioned to the Med/Surg floor. Overnight, she has had issues with pain control and been slow to mobilize. She has gotten up to the bedside commode and is urinating appropriately. She is tolerating a regular diet. The patient has a past medical history of hyponatremia and has been evaluated by Nephrology in the past. Today, her sodium is 134. Her perioperative recommendations by Nephrology were to monitor her sodium closely and avoid any hypotonic fluids. OBJECTIVE: On exam this morning, she is awake, alert, comfortable. She is in no acute distress. She has free active range of motion of all extremities. No focal motor weakness. No reflex asymmetry. Sensation is intact to light touch. Her incision is dry and intact. ASSESSMENT AND PLAN: We will continue to monitor her sodium closely and I have asked the Medicine Service for assistance in medical management with this electrolyte imbalance as well as her other medical issues. We talked in depth about home versus rehab and family is interested in inpatient rehabilitation at discharge. I have placed a Rehab screen and Case Management will assist with this. We will continue to work on mobilizing and pain control. Job ID: [id number]
[2018-11-02] MEDS: NIFEdipine XL 60 MG TAB PO SCH ×2 (09:14→20:35)
[2018-11-02] MEDS: tiZANidine HCl 4 MG TAB PO PRN (09:14)
[2018-11-02] MEDS: Carvedilol 25 MG TAB PO SCH ×2 (09:14→20:35)
--- NOTE | 2018-11-02 18:48 | PDOC.EVN ---
Event Note - Event Note Event Note: Pt seen and examined re: hyponatremia. Denies any complaints. Moist mucosae. VSS. S1, S2, RRR. Lungs CTA. Pt's sodium is 134, has a h/o chronic hyponatremia, more severe in the past. Recommend checking again in 2-3 days and if low recommend followup with Dr Key.
[2018-11-02 19:30] VITALS: TEMP 98.4
[2018-11-02 20:35] VITALS: BP 124/72
[2018-11-02] MEDS: Loratadine 10 MG TAB PO SCH (20:36)
--- NOTE | 2018-11-04 10:30 | OP ---
DATE OF PROCEDURE: 11/01/2018 PROFESSIONAL ENGINEER: Clement Horan PA-C PREPROCEDURE DIAGNOSES: Low back and leg pain with multilevel lumbar stenosis and disk extrusion. POSTPROCEDURE DIAGNOSES: Low back and leg pain with multilevel lumbar stenosis and disk extrusion. PROCEDURE: 1. L3-L4 laminectomy, partial facetectomy, and foraminotomies. 2. Left L4-L5 hemilaminotomy, foraminotomy, and diskectomy. 3. Left L5-S1 hemilaminotomy and foraminotomy. 4. Use of operative microscope for microdissection. DESCRIPTION OF PROCEDURE: After informed consent was obtained from the patient, the patient was brought to the OR. Proper patient, pause, and identification were carried out, she was placed under excellent general endotracheal anesthesia and positioned prone on the OR table. All appropriate points were padded. We identified the L3, L4, L5, and S1 dorsal spines and lamina. A linear isabell was made over this region. This area was sterilely cleansed, prepared, and draped. Proper patient, pause, and identification were carried out. The wound was then opened with a combination of sharp, monopolar, and blunt dissection. The L3-L4, left L4-L5, and left L5-S1 segments were exposed. Localization film confirmed area of interest. We then performed L3-L4 laminectomy, partial facetectomy, and foraminotomies with the left L4-L5 and left L5-S1 hemilaminotomy, foraminotomy, and diskectomy at the level L4-L5 segment with the use of operative microscope for microdissection. Disk material was removed in particularly cephalad, extended, sequestered fragment, although the left L4-L5 disk space was removed. We assured freedom as well. The left L5-S1 segment in particular the exiting left L5 and traversing left S1 nerve root. Copious irrigation occurred throughout as did maximizing hemostasis. There was no spinal fluid leak. The wound was then closed in anatomic layers following sprinkling of vancomycin powder. The patient then emerged from anesthesia. Job ID: [id number]
== END 2018-11-02 20:50 ==
LOC: SDC 07:18 → SJJU 13:43 → SDC 11-02 20:50
PROVIDERS: ATTEND Surgery
PROC: 0SB20ZZ Excision of Lumbar Vertebral Disc, Open Approach (ICD-10-PCS; principal; 2018-11-01)
PROC: 01NB0ZZ Release Lumbar Nerve, Open Approach (ICD-10-PCS; 2018-11-01)
DX: M48.061 Spinal stenosis, lumbar region without neurogenic claudication (principal); M51.16 Intervertebral disc disorders with radiculopathy, lumbar region; E87.1 Hypo-osmolality and hyponatremia; Z79.899 Other long term (current) drug therapy; Z88.0 Allergy status to penicillin; Z88.2 Allergy status to sulfonamides
CPT/HCPCS: 36415; 76000; 84295; J1100; J1956; J2001; J2405; J2704; J2765; J3010; J3370; J3490; J8597

== ENCOUNTER 2019-07-29 12:27 | Observation (INO) | payer MEDICARE ==
[2019-07-29 14:25] LABS: #Basophils 0.1 thou/uL (0.0-0.2); #Eosinphils 0.6 thou/uL (0.0-0.7); #Neutrophils 8.1 thou/uL (1.40-6.50); %Basophils 0.7 % (0.0-1.0); %Eosinophils 4.8 % (0.0-10.0); %Lymphocytes 16.7 % (21.0-51.0); %Monocytes 8.9 % (0.0-10.0); %Neutrophils 68.8 % (42.0-75.0); Hemoglobin 13.5 g/dL (12.0-16.0); Mean Corpuscular Hemoglobin 29.8 pg (27.0-31.0); Mean Corpuscular Volume 90.1 fL (78.0-98.0); Mean Platelet Volume 7.4 fL (7.4-10.4); Platelet Count 407 thou/uL (130-400); RBC Distribution Width 12.7 % (11.5-14.5); Red Blood Cell (RBC) Count 4.53 mill/uL (4.20-5.40); White Blood Cell (WBC) Count 11.7 thou/uL (4.8-10.8)
[2019-07-29 14:57] LABS: ALT (SGPT) 21 U/L (8-55); AST (SGOT) 20 U/L (5-34); Albumin 4.2 g/dL (3.4-4.8); Alkaline Phosphatase 140 U/L (40-110); Anion Gap 15 mmol/L (10-20); BUN (Urea Nitrogen) 17 mg/dL (9.8-20.1); Bilirubin, Total 0.3 mg/dL (0.2-1.2); Calc. Creatinine Clearance 0 mL/min (70-130); Calcium 9.4 mg/dL (7.8-10.44); Carbon Dioxide 29 mmol/L (23-31); Chloride 95 mmol/L (98-107); Estimated GFR-MDRD 53; Globulin 3.5 g/dL (2.4-3.5); Glucose 93 mg/dL (83-110); Potassium 4.8 mmol/L (3.5-5.1); Protein, Total 7.7 g/dL (6.0-8.3); Sodium 134 mmol/L (136-145)
--- NOTE | 2019-07-29 20:23 | CT ---
Exam: Head CT without contrast HISTORY: Dizziness. Evaluate for CVA. COMPARISON: 06/30/2017 FINDINGS: Hemorrhage: No intraparenchymal hemorrhage or extra-axial hematoma. Brain parenchyma: Cortical castanon-white matter differentiation is preserved. No mass effect or midline shift. Basilar cisterns are patent.Stable nonspecific white matter hypodensities, likely representing chronic small vessel ischemic change. Ventricular system: Ventricles and sulci are patent and symmetric. Calvarium: Intact. Sinuses and mastoid air cells: Adequate aeration. IMPRESSION: 1. No acute intracranial process. 2. Stable white matter hypodensities, likely due to chronic small vessel ischemic change.
[2019-07-29 21:31] VITALS: BMI 34.9
[2019-07-29] MEDS ORDERED: Acetaminophen 650 MG Suppository PR PRN (22:09)
[2019-07-29] MEDS ORDERED: Acetaminophen 325 MG TAB PO PRN (22:09)
[2019-07-29 23:16] LABS: Lactic Acid 1.2 mmol/L (0.5-2.2)
--- NOTE | 2019-07-30 00:22 | HP ---
TIME OF ASSESSMENT: 2000 hours. CHIEF COMPLAINT: Lightheadedness and low blood pressure. HISTORY OF PRESENT ILLNESS: Ms. Ellsworth is a very pleasant 74-year-old woman, who presents today due to an episode of sudden onset lightheadedness while she was standing outside. She leaned against a wall and states it resolved after 10-15 minutes. She states she went inside her home and checked her blood pressure noting that it was in the 90s systolic. She rechecked that again 15 minutes later and it was lower in the 80s. After another 30 minutes, her blood pressure had improved to the 120 systolic. She states she had a similar episode while at [employer] 2 days ago. She states she was checking out at the [employer] when suddenly her vision became blurry and she suddenly felt lightheaded, feeling as if she might faint. She was walked to her car and after 10-15 minutes her symptoms fully settled. She reports having an unusual episode 5 days ago, which she describes as a brief moment of "spacing out." She states she was in the kitchen, was blankly staring, but this lasted seconds and was not accompanied by any presyncopal episodes or vision changes. The patient denies having any extremity numbness or weakness. No spinning sensation. No headache. No recent fevers, chills, or sweats. No cough. No chest pain or hemoptysis. She has noted increasing lower extremity swelling, which she states tends to happen when she is retaining fluid. In recent days, she has had a flare of her IBS, which she tends to manage with Lomotil. The patient reports having 8-9 stools in the morning, which starts soft and then become very watery and occur immediately after meals. She has not noted any blood in the stool. She states it has been quite sometime since she has had a flare like this. Of note, the patient states she has had adjustments with her blood pressure medications done by Dr. Key due to labile blood pressure. ED COURSE: In the emergency department, she was noted to be normotensive with a temperature of 137/68 and afebrile. She was given 500 mL of normal saline. LABORATORY STUDIES: She had laboratory studies done, which showed a white count of 11.7, hemoglobin 13.5, platelets 407, neutrophils 68.8. Sodium 134, potassium 4.8, chloride 95, BUN 17, creatinine 1.01, GFR 53, glucose 93, calcium 9.4. LFTs unremarkable. Alkaline phosphatase 140. Troponin 1-. She had an EKG done as well, which showed normal sinus rhythm with a heart rate of 87. No ST changes or T-wave abnormalities. PAST MEDICAL HISTORY: 1. Hypertension. 2. Pneumonia x5. 3. RSV requiring hospitalization. 4. IBS. PAST SURGICAL HISTORY: 1. Right kidney removal. 2. Cholecystectomy. 3. Tonsillectomy. 4. Appendectomy. 5. Tubal ligation. 6. [place] teeth removal. 7. Left knee surgery in 2011 for meniscus repair. SOCIAL HISTORY: The patient lives alone. Denies any alcohol consumption or illicit drug use. No tobacco use. FAMILY HISTORY: Her father was known to have heart disease. ALLERGIES: PENICILLIN AND SULFA. CURRENT MEDICATIONS: 1. Carvedilol. 2. Lomotil. 3. Nexium. 4. Irbesartan. 5. Metoclopramide. 6. Nifedipine ER. PHYSICAL EXAMINATION: GENERAL: The patient appears well developed, well nourished, is in no acute distress. VITAL SIGNS: . HEENT: Normocephalic and atraumatic. Pupils are equal, round, and reactive to light. Sclerae without icterus. Oropharynx is clear. NECK: Supple. LUNGS: Clear to auscultation bilaterally without wheezes, rales, or rhonchi. CARDIAC: Regular rate and rhythm without audible murmurs, rubs, or gallops. ABDOMEN: Soft, nontender, nondistended. Normoactive bowel sounds present. No guarding or rigidity. No renal angle tenderness. EXTREMITIES: Notable for lower extremity swelling, but no pitting edema. Mild calf tenderness bilaterally. Pedal pulses equal and strong bilaterally. SKIN: Warm and dry. INVESTIGATIONS: As mentioned above in HPI. IMPRESSION AND PLAN: Ms. Ellsworth is a pleasant 74-year-old woman, who is being admitted for management of the following. 1. Lightheadedness. The patient initially reported to have had dizziness; therefore, e had added on a CT of the head to rule out any underlying intracranial abnormality. On assessment, it appears the patient has been actually experiencing lightheadedness associated with low blood pressure per episode she had today. This is likely being exacerbated by volume depletion given the excessive diarrhea she has experienced for the last several days. The patient given 0.5 L of normal saline in the ER. We will continue very gentle hydration given patient's reported history of fluid retention. We will obtain an echo. Continue cardiac monitoring. We will add magnesium and BNP. We will check for any possible underlying infection. Urinalysis and urine culture requested. We will add procalcitonin. Check orthostatic blood pressures. 2. Diarrhea. The patient states this is a flare of her Clostridium difficile. She is known to Dr. Bell. We will check stool studies to rule out any underlying Clostridium difficile. If negative, we will resume Lomotil to help control her stools. No indication for any further imaging at this present time. 3. Hypertension. Monitor blood pressure closely. 4. Hyperlipidemia. Resume home medications once verified. 5. Gastrointestinal prophylaxis with Nexium, which she takes at home. 6. Deep venous thrombosis prophylaxis. Given lower extremity swelling and discomfort, we will obtain venous Doppler. The patient is ambulatory. 7. Code status full. 8. Surrogate decision maker is her , Eloy Ellsworth. 9. The patient's case discussed with attending who agrees with plan of care as described above. Job ID: [id number]
[2019-07-30 02:24] LABS: Bilirubin Negative (Negative); Blood, Urine Negative (Negative); Clarity Clear (Clear); Glucose, Urine (Dipstick) Normal (Negative); Leukocyte 75 Leu/uL (Negative); Nitrite Negative (Negative); Protein, Urine (Dipstick) Negative (Neg-Trace); RBC/HPF 0-3 HPF (0-3); Squamous Epithelial 0-3 HPF (0-3); Urobilinogen Normal mg/dL (Less than 2)
[2019-07-30 02:25] LABS: Bacteria/HPF Rare-Few HPF (None Seen)
[2019-07-30 02:26] LABS: Urine Culture Reflex Yes Yes
[2019-07-30 05:41] LABS: #Basophils 0.1 thou/uL (0.0-0.2); #Eosinphils 0.5 thou/uL (0.0-0.7); #Lymphocytes 2.2 thou/uL (1.20-3.40); #Monocytes 0.8 thou/uL (0.11-0.59); #Neutrophils 5.9 thou/uL (1.40-6.50); %Basophils 0.8 % (0.0-1.0); %Eosinophils 5.8 % (0.0-10.0); %Lymphocytes 22.8 % (21.0-51.0); %Monocytes 8.1 % (0.0-10.0); %Neutrophils 62.6 % (42.0-75.0); Hemoglobin 11.8 g/dL (12.0-16.0); Mean Corpuscular Hemoglobin 29.4 pg (27.0-31.0); Mean Corpuscular Volume 89.1 fL (78.0-98.0); Mean Platelet Volume 7.4 fL (7.4-10.4); Platelet Count 328 thou/uL (130-400); RBC Distribution Width 12.6 % (11.5-14.5); White Blood Cell (WBC) Count 9.4 thou/uL (4.8-10.8)
[2019-07-30 05:57] LABS: Anion Gap 14 mmol/L (10-20); BUN (Urea Nitrogen) 13 mg/dL (9.8-20.1); Calc. Creatinine Clearance 90 mL/min (70-130); Calcium 8.6 mg/dL (7.8-10.44); Carbon Dioxide 25 mmol/L (23-31); Chloride 101 mmol/L (98-107); Estimated GFR-MDRD 87; Glucose 109 mg/dL (83-110); Potassium 3.9 mmol/L (3.5-5.1); Sodium 136 mmol/L (136-145)
--- NOTE | 2019-07-30 07:16 | ULT ---
PRELIMINARY REPORT/[facility]/EMERGENCY AFTER HOURS PROCEDURE EXAM: US Duplex bilateral Lower Extremities Veins. CLINICAL HISTORY: BLE pain/edema TECHNIQUE: Real-time ultrasound scan of the veins of the bilateral lower extremities with color Doppler flow, sp ectral waveform analysis and compression. COMPARISON: None provided. FINDINGS: DEEP VEINS: The common femoral, femoral, and popliteal veins are echolucent and compressible. These v essels demonstrate respiratory variation and augmentation. There is normal color Doppler flow throughout. The visualized calf veins are also patent. SUPERFICIAL VEINS: The visualized greater saphenous vein is patent. SOFT TISSUES: 1.6 x 1.1 x 2.4 cm complex fluid collection in the right medial knee may represent a po pliteal cyst. IMPRESSION: No deep venous thrombosis in the bilateral lower extremities. 2.4 cm complex fluid collection in the right medial knee may represent a popliteal cyst. ELECTRONICALLY SIGNED BY: Candace Garvin MD Jul 30, 2019 3:36:27 AM [employer] This report is intended for review by the ordering physician only, in accordance of law. If you recei ve this report in error, please call [facility] at [phone]. FINAL REPORT BY DR. [facility] EMERGENCY AFTER HOURS STUDY HISTORY: 74-year-old female with bilateral lower extremity pain and edema. ULTRASOUND DOPPLER DUPLEX VENOUS LEFT LOWER EXTREMITY: TECHNIQUE: Grayscale, color-flow, and spectral analysis, of major veins of left lower extremity. FINDINGS: There is demonstration of blood flow with normal compressibility, of the left common femoral, profund a femoral, greater saphenous, femoral, popliteal, and posterior tibial, veins. There is a 4.5 x 2.5 x 1 cm complex right Guevara's cyst. Agree with preliminary report by [facility]. IMPRESSION: 1. Negative. No deep venous thrombosis of left lower extremity. 2. complex right Guevara's cyst. Transcribed Date/Time: 07/30/2019 8:08 AM
[2019-07-30] MEDS ORDERED: Carvedilol 25 MG TAB PO SCH (08:00)
[2019-07-30] MEDS ORDERED: Losartan 25 MG TAB PO SCH (09:00)
[2019-07-30] MEDS ORDERED: NIFEdipine XL 90 MG TAB PO SCH (09:00)
[2019-07-30 11:43] VITALS: BP 140/64; TEMP 97.2
--- NOTE | 2019-07-30 15:52 | DIS ---
DATE OF ADMISSION: 07/29/2019 DATE OF DISCHARGE: 07/30/2019 DISCHARGE DIAGNOSES: 1. Dizziness, multifactorial including dehydration, resolving. 2. Diarrhea, likely iatrogenic secondarily to Reglan. 3. Hypertension, stable. 4. Acute kidney injury secondary to dehydration, resolved. CONSULTATIONS: None. PERTINENT LABORATORY AND X-RAY FINDINGS: Creatinine ranged between 0.66 to 1.01. Estimated GFR ranged between 53 to 87. Lactic acid level 1.2. Magnesium 1.8. BNP 91. TSH 2.12. CBC showed a white blood cell count ranging between 9.4 to 11.7. C difficile antigen and toxin dated 07/30/2019, negative. Stool studies negative on 07/30/2019. Stool lactoferrin negative on 07/30/2019. CT of the brain without contrast dated 07/29/2019 showed no acute intracranial process. Bilateral lower extremity venous Doppler study dated 07/30/2019, showed no evidence for DVT. Incidental right Guevara's cyst noted. HOSPITAL COURSE: The patient was observed on the telemetry unit after initially presenting with dizziness, hypotension, and dehydration. The patient received IV fluids and underwent general metabolic screening showing evidence of acute kidney injury in the context of dehydration. The patient's renal function improved with IV fluid hydration and supportive management. The patient was also noted with diarrhea, undergoing infectious rule out for Clostridium difficile. The patient currently taking Reglan on an outpatient basis with recommendations to discontinue as this could contribute to her diarrhea. Telemetry monitoring showed no evidence of acute arrhythmia or dysrhythmia and workup was essentially unremarkable. The patient overall clinically stable with stable vital signs at the time of discharge. I have examined the patient and discussed followup instructions. The patient verbalized understanding and in agreement and ready for discharge on 07/30/2019. DISCHARGE MEDICATIONS: 1. Carvedilol 25 mg p.o. b.i.d. 2. Lomotil 2.5 mg p.o. q.i.d. p.r.n. 3. Nexium 40 mg p.o. daily. 4. Irbesartan 300 mg p.o. daily. 5. Nifedipine extended release 90 mg p.o. daily. FOLLOWUP: The patient may follow up with Dr. Tomi Ramon within 7 days of discharge. CONDITION ON DISCHARGE: Stable. ACTIVITY: Ad-ciaran. DIET: Heart healthy. CODE STATUS: Full. DISPOSITION: Home on 07/30/2019. Job ID: [id number]
== END 2019-07-30 14:24 | disposition home or self-care (01) ==
LOC: ERS 12:27 → 2SW 20:46
PROVIDERS: ADMIT Hospitalist; ATTEND Hospitalist
DX: E86.0 Dehydration (principal); R42 Dizziness and giddiness; N17.9 Acute kidney failure, unspecified; K58.0 Irritable bowel syndrome with diarrhea; I10 Essential (primary) hypertension; E78.5 Hyperlipidemia, unspecified; I95.9 Hypotension, unspecified; Z79.899 Other long term (current) drug therapy; Z88.0 Allergy status to penicillin; Z88.2 Allergy status to sulfonamides
CPT/HCPCS: 70450; 80048; 81001; 83605; 83630; 83735; 83880; 84145; 84484 ×2; 85025; 87045; 87046; 87086; 87324; 87328; 87329; 87427 ×2; 87449 ×2; 93005; 93970; 96374; 96375; 97139; 99285; G0378 ×3; 36415; 80053; 84443

== ENCOUNTER 2019-12-10 10:50 | Outpatient (CLI) | payer MEDICARE ==
--- NOTE | 2019-12-10 12:00 | MMO ---
Bilateral MAMMO Bilat Screen [facility]. CLINICAL HISTORY: Patient is 74 years old and is seen for screening. The patient has the following family history of breast cancer: maternal grandmother. The patient has no personal history of cancer. The patient has a history of left Stereotatic Biopsy in 1999 - benign and left Excisional Biopsy in 1998 - benign. VIEWS: The views performed were: bilateral craniocaudal with tomosynthesis and bilateral mediolateral oblique with tomosynthesis. FILMS COMPARED: The present examination has been compared to prior imaging studies performed at [facility] on 08/15/2016, 08/30/2017 and 09/10/2018. This study has been interpreted with the assistance of computer-aided detection. MAMMOGRAM FINDINGS: There are scattered fibroglandular densities. Finding 1: There are benign appearing calcifications seen in both breasts. Finding 2: There is a biopsy clip seen in the left breast. There are no suspicious masses, calcifications or areas of architectural distortion. Finding 3: There is a stable focal asymmetry seen in the posterior central region of the left breast. Finding 4: There is a new equal density, oval mass with circumscribed margins seen in the middle region of the right breast at 6 o'clock. IMPRESSION: FINDING 4: NEW MASS IN THE RIGHT BREAST REQUIRES ADDITIONAL EVALUATION. AN ULTRASOUND EXAM IS RECOMMENDED. THE RESULTS OF THIS EXAM WERE SENT TO THE PATIENT. ACR BI-RADS Category 0 - Incomplete: Need additional imaging evaluation. [facility] will notify the patient of the need for additional imaging services. MAMMOGRAPHY NOTE: 1. A negative mammogram report should not delay a biopsy if a dominant of clinically suspicious mass is present. 2. Approximately 10% to 15% of breast cancers are not detected by mammography. 3. Adenosis and dense breasts may obscure an underlying neoplasm. Reported by: CARLOS MENDEZ MD Electonically Signed: [id number]
== END 2019-12-10 10:51 | disposition home or self-care (01) ==
LOC: BICMAMMO 10:50
PROVIDERS: ATTEND Obstetrics & Gynecology
DX: Z12.31 Encounter for screening mammogram for malignant neoplasm of breast (principal); N63.14 Unspecified lump in the right breast, lower inner quadrant; Z91.89 Other specified personal risk factors, not elsewhere classified; Z80.3 Family history of malignant neoplasm of breast
CPT/HCPCS: 77063; 77067

== ENCOUNTER 2019-12-16 13:59 | Outpatient (CLI) | payer MEDICARE ==
--- NOTE | 2019-12-16 14:14 | ULT ---
EXAM: US Breast Limited Rt PROVIDED CLINICAL HISTORY: Abnormal screening mammogram COMPARISON: Screening mammogram 12/10/2019 FINDINGS: Limited sonographic interrogation of the right breast at the 6:00 position in the region of mammograp hic concern demonstrates a circumscribed focus of anechogenicity in this location, measuring about 7-8 mm. This corresponds to the mammogram finding. There is enhanced through transmission and well-de fined back wall. No shadowing. IMPRESSION: Simple cyst corresponds to the screening finding. Return to annual screening mammography recommended. BI-RADS 2 -- benign findings
== END 2019-12-16 14:00 | disposition home or self-care (01) ==
LOC: BICULT 13:59
PROVIDERS: ATTEND Obstetrics & Gynecology
DX: N63.10 Unspecified lump in the right breast, unspecified quadrant (principal); N60.01 Solitary cyst of right breast

== ENCOUNTER 2021-01-12 12:48 | Outpatient (CLI) | payer MEDICARE | END 2021-01-12 12:49 | disposition home or self-care (01) | LOC: BICMAMMO 12:48 | PROVIDERS: ATTEND Obstetrics & Gynecology | DX: Z12.31 Encounter for screening mammogram for malignant neoplasm of breast (principal); Z80.3 Family history of malignant neoplasm of breast | CPT/HCPCS: 77063; 77067 ==

== ENCOUNTER 2021-04-03 12:31 | Emergency (ER) | payer MEDICARE ==
[2021-04-03] MEDS ORDERED: Ketorolac Tromethamine 30 MG/ML VIAL ONE (13:04)
== END 2021-04-03 15:33 | disposition home or self-care (01) ==
LOC: ERS 12:31
DX: M25.561 Pain in right knee (principal); I10 Essential (primary) hypertension; Z87.01 Personal history of pneumonia (recurrent); Z79.899 Other long term (current) drug therapy; M79.604 Pain in right leg
CPT/HCPCS: 96372; J1885

== ENCOUNTER 2022-01-13 10:31 | Outpatient (CLI) | payer MEDICARE | END 2022-01-13 10:32 | disposition home or self-care (01) | LOC: BICMAMMO 10:31 | PROVIDERS: ATTEND Obstetrics & Gynecology | DX: Z12.31 Encounter for screening mammogram for malignant neoplasm of breast (principal); Z80.3 Family history of malignant neoplasm of breast; Z91.89 Other specified personal risk factors, not elsewhere classified | CPT/HCPCS: 77063; 77067 ==

== ENCOUNTER 2022-06-08 15:18 | Outpatient (CLI) | payer OTHER | END 2022-06-08 15:19 | disposition home or self-care (01) | LOC: BICRAD 15:18 | PROVIDERS: ATTEND Internal Medicine Rheumatology | DX: M81.0 Age-related osteoporosis without current pathological fracture (principal); M47.814 Spondylosis without myelopathy or radiculopathy, thoracic region | CPT/HCPCS: 72072 ==

== ENCOUNTER 2023-04-18 10:01 | Outpatient (CLI) | payer MEDICARE | END 2023-04-18 10:02 | disposition home or self-care (01) | LOC: BICMAMMO 10:01 | PROVIDERS: ATTEND Family Medicine | DX: Z12.31 Encounter for screening mammogram for malignant neoplasm of breast (principal); Z80.3 Family history of malignant neoplasm of breast; Z91.89 Other specified personal risk factors, not elsewhere classified | CPT/HCPCS: 77063; 77067 ==

== ENCOUNTER 2023-09-13 11:02 | Inpatient (IN) | payer MEDICARE ==
[2023-09-13 11:59] LABS: #Eosinphils 0.2 thou/uL (0.0-0.7); #Monocytes 0.9 thou/uL (0.11-0.59); #Neutrophils 8.2 thou/uL (1.40-6.50); %Basophils 0.4 % (0.0-1.0); %Eosinophils 1.8 % (0.0-10.0); %Lymphocytes 9.1 % (21.0-51.0); %Monocytes 8.7 % (0.0-10.0); %Neutrophils 79.2 % (42.0-75.0); Hematocrit 36.2 % (36.0-47.0); Hemoglobin 12.8 g/dL (12.0-16.0); Mean Corpuscular HGB CONC 35.4 g/dL (32.0-36.0); Mean Corpuscular Hemoglobin 30.7 pg (27.0-31.0); Mean Corpuscular Volume 86.8 fl (78.0-98.0); Mean Platelet Volume 9.6 fL (7.4-10.4); Platelet Count 325 10x3/uL (130-400); Red Blood Cell (RBC) Count 4.17 mill/uL (4.20-5.40); White Blood Cell (WBC) Count 10.4 10x3/uL (4.8-10.8)
[2023-09-13 12:14] LABS: ALT (SGPT) 18 U/L (8-55); AST (SGOT) 23 U/L (5-34); Albumin 4.1 g/dL (3.4-4.8); Alkaline Phosphatase 104 U/L (40-110); Anion Gap 16 mmol/L (10-20); BUN (Urea Nitrogen) 15 mg/dL (9.8-20.1); Bilirubin, Total 0.6 mg/dL (0.2-1.2); CK (CPK) 69 U/L (29-168); Calc. Creatinine Clearance 0 mL/min (70-130); Carbon Dioxide 25 mmol/L (23-31); Chloride 83 mmol/L (98-107); Estimated GFR 77; Globulin 3.3 g/dL (2.4-3.5); Glucose 150 mg/dL (83-110); Protein, Total 7.4 g/dL (5.8-8.1); Sodium 120 mmol/L (136-145)
[2023-09-13 12:15] LABS: Troponin I 0.011 ng/mL (< 0.028)
[2023-09-13] MEDS ORDERED: Iopamidol-370 76% 500 ML MDV (1 ML CHARGE) ONE (12:18)
[2023-09-13 12:26] LABS: INR-International Normal Ratio 0.9; PTT 28.5 sec (22.9-36.1); Prothrombin Time 12.1 sec (12.0-14.7)
[2023-09-13] MEDS ORDERED: diphenhydrAMINE 50 MG/ML VIAL ONE (14:05)
[2023-09-13] MEDS ORDERED: Acetaminophen 500 MG TAB ONE (14:05)
[2023-09-13] MEDS ORDERED: Metoclopramide HCl 10 MG (2 mL) VIAL ONE (14:05)
[2023-09-13 14:47] LABS: Troponin I Less than 0.010 ng/mL (< 0.028)
[2023-09-13] MEDS ORDERED: Acetaminophen 650 MG Suppository PR PRN ×2 (15:04)
[2023-09-13] MEDS ORDERED: Acetaminophen 325 MG TAB PO PRN (15:04)
[2023-09-13] MEDS ORDERED: Senokot S 8.6-50 MG TAB PO PRN (15:04)
[2023-09-13] MEDS ORDERED: Ondansetron ODT 4 MG TAB PO PRN (15:04)
[2023-09-13] MEDS ORDERED: Albuterol 200 PUFF (6.7GM INHALER) INH PRN (15:04)
[2023-09-13] MEDS ORDERED: Bisacodyl 10 MG SUPP PR PRN (15:04)
[2023-09-13] MEDS ORDERED: Ondansetron PF 4 MG/2 ML Vial IVP PRN (15:04)
[2023-09-13] MEDS ORDERED: REMDESIVIR 200 MG in Sodium Chloride 0.9% 250 ML 210 ML IV SCH (15:15)
[2023-09-13] MEDS ORDERED: Dexamethasone 10 MG/ML VIAL ONE (15:35)
[2023-09-13] MEDS: Dexamethasone 10 MG/ML VIAL SLOW IVP SCH (15:58)
[2023-09-13 17:11] LABS: Chloride 86 mmol/L (98-107); Potassium 3.7 mmol/L (3.5-5.1)
[2023-09-13 17:12] LABS: Calcium 8.4 mg/dL (7.8-10.44); Glucose 111 mg/dL (83-110)
[2023-09-13 17:14] LABS: Anion Gap 16 mmol/L (10-20); Carbon Dioxide 21 mmol/L (23-31)
[2023-09-13 17:15] LABS: Calc. Creatinine Clearance 81 mL/min (70-130); Estimated GFR 88
[2023-09-13 17:16] LABS: BUN (Urea Nitrogen) 11 mg/dL (9.8-20.1)
[2023-09-13 17:19] LABS: Critical Call Chemistry NUR.MY @1718; Sodium 119 mmol/L (136-145)
[2023-09-13 17:21] LABS: Troponin I Less than 0.010 ng/mL (< 0.028)
[2023-09-13] MEDS: REMDESIVIR 200 MG in Sodium Chloride 0.9% 250 ML 210 ML IV SCH (17:31)
[2023-09-13 17:33] LABS: Magnesium 1.4 mg/dL (1.6-2.6)
[2023-09-13] MEDS ORDERED: Famotidine/PF 20 mg/2ml Vial ONE (20:39)
[2023-09-13] MEDS ORDERED: Acetaminophen 325 MG TAB ONE (20:39)
[2023-09-13] MEDS ORDERED: Magnesium 2 GM/50 ML BAG (IN WATER) ONE (20:39)
[2023-09-13] MEDS: Famotidine/PF 20 mg/2ml Vial SLOW IVP SCH (20:56)
[2023-09-13] MEDS: Acetaminophen 325 MG TAB PO PRN (20:57)
[2023-09-13] MEDS ORDERED: Morphine 2 MG/ML VIAL ONE (21:36)
[2023-09-13] MEDS: Morphine 4 MG/ML VIAL SLOW IVP SCH (21:45)
[2023-09-13] MEDS: Magnesium 2 GM/50 ML(in water) 2 GM in Premix 1 BAG IVPB SCH (21:47)
[2023-09-13] MEDS: Ipratropium/Albuterol 3 ML NEB EZPAP PRN (22:04)
[2023-09-13 22:44] LABS: Troponin I Less than 0.010 ng/mL (< 0.028)
[2023-09-13 22:48] LABS: Anion Gap 19 mmol/L (10-20); BUN (Urea Nitrogen) 12 mg/dL (9.8-20.1); Calc. Creatinine Clearance 73 mL/min (70-130); Calcium 8.6 mg/dL (7.8-10.44); Carbon Dioxide 20 mmol/L (23-31); Chloride 84 mmol/L (98-107); Estimated GFR 78; Glucose 203 mg/dL (83-110); Potassium 3.8 mmol/L (3.5-5.1)
[2023-09-13 22:55] LABS: Critical Call Chemistry NUR.LM20@2254; Sodium 119 mmol/L (136-145)
[2023-09-14] MEDS: Furosemide 20 MG (2 mL) VIAL SLOW IVP SCH ×2 (00:32→10:02)
[2023-09-14] MEDS: NIFEdipine XL 30 MG ER.TAB PO SCH (00:32)
[2023-09-14 01:30] VITALS: BMI 29.4
[2023-09-14 03:53] LABS: #Monocytes 0.3 thou/uL (0.11-0.59); %Basophils 0.1 % (0.0-1.0); %Lymphocytes 9.6 % (21.0-51.0); %Monocytes 2.8 % (0.0-10.0); %Neutrophils 87.3 % (42.0-75.0); Hematocrit 35.5 % (36.0-47.0); Hemoglobin 12.8 g/dL (12.0-16.0); Mean Corpuscular HGB CONC 36.1 g/dL (32.0-36.0); Mean Corpuscular Hemoglobin 30.8 pg (27.0-31.0); Mean Corpuscular Volume 85.5 fl (78.0-98.0); Mean Platelet Volume 9.5 fL (7.4-10.4); Platelet Count 305 10x3/uL (130-400); RBC Distribution Width 11.9 % (11.5-14.5); Red Blood Cell (RBC) Count 4.15 mill/uL (4.20-5.40); White Blood Cell (WBC) Count 9.2 10x3/uL (4.8-10.8)
[2023-09-14 04:23] LABS: ALT (SGPT) 126 U/L (8-55); AST (SGOT) 150 U/L (5-34); Albumin 3.7 g/dL (3.4-4.8); Alkaline Phosphatase 165 U/L (40-110); Anion Gap 14 mmol/L (10-20); BUN (Urea Nitrogen) 10 mg/dL (9.8-20.1); Bilirubin, Total 0.4 mg/dL (0.2-1.2); Calc. Creatinine Clearance 76 mL/min (70-130); Calcium 8.3 mg/dL (7.8-10.44); Carbon Dioxide 23 mmol/L (23-31); Chloride 84 mmol/L (98-107); Critical Call Chemistry NUR.KAO@ 0415; Estimated GFR 82; Globulin 3.2 g/dL (2.4-3.5); Glucose 171 mg/dL (83-110); Magnesium 1.9 mg/dL (1.6-2.6); Potassium 3.3 mmol/L (3.5-5.1); Protein, Total 6.9 g/dL (5.8-8.1); Sodium 118 mmol/L (136-145)
[2023-09-14] MEDS: Potassium Chloride 20 MEQ TAB PO SCH (05:29)
[2023-09-14] MEDS: Sodium Chloride 3% 500 ML IVPB SCH (05:30)
[2023-09-14 07:42] LABS: Chloride 86 mmol/L (98-107); Potassium 3.6 mmol/L (3.5-5.1); Sodium 121 mmol/L (136-145)
[2023-09-14 07:43] LABS: Calcium 8.3 mg/dL (7.8-10.44); Glucose 164 mg/dL (83-110)
[2023-09-14 07:44] LABS: Anion Gap 19 mmol/L (10-20); Carbon Dioxide 20 mmol/L (23-31)
[2023-09-14 07:46] LABS: Calc. Creatinine Clearance 80 mL/min (70-130); Estimated GFR 88
[2023-09-14 07:47] LABS: BUN (Urea Nitrogen) 10 mg/dL (9.8-20.1)
[2023-09-14] MEDS: Ascorbic Acid 500 mg Chewable Tablet PO SCH (10:02)
[2023-09-14] MEDS: Zinc Sulfate 220 MG CAP PO SCH (10:03)
[2023-09-14] MEDS: Enoxaparin 40 MG (0.4 mL) SYRINGE SC SCH (10:03)
[2023-09-14] MEDS: Cholecalciferol (Vitamin D3) 400 UNITS TAB PO SCH (10:03)
[2023-09-14] MEDS: Dexamethasone 10 MG/ML VIAL SLOW IVP SCH (10:03)
[2023-09-14 10:29] LABS: Anion Gap 17 mmol/L (10-20); BUN (Urea Nitrogen) 10 mg/dL (9.8-20.1); Calc. Creatinine Clearance 79 mL/min (70-130); Calcium 8.4 mg/dL (7.8-10.44); Carbon Dioxide 22 mmol/L (23-31); Chloride 89 mmol/L (98-107); Estimated GFR 86; Glucose 194 mg/dL (83-110); Potassium 3.8 mmol/L (3.5-5.1); Sodium 124 mmol/L (136-145)
[2023-09-14] MEDS: Benzonatate 100 MG CAP PO PRN (10:53)
[2023-09-14] MEDS ORDERED: [UNRECOGNIZED DRUG - OTHER] PO PRN (11:55)
[2023-09-14] MEDS ORDERED: DIPHENOXYLATE HCL PO PRN (11:55)
[2023-09-14] MEDS ORDERED: ATROPINE PO PRN (11:55)
[2023-09-14] MEDS ORDERED: Diphenoxylate HCl/Atropine Tablet PO PRN (12:12)
[2023-09-14 13:03] LABS: Sodium 124 mmol/L (136-145)
[2023-09-14] MEDS ORDERED: REMDESIVIR 100 MG in Sodium Chloride 0.9% 250 ML 230 ML IV SCH (15:15)
[2023-09-14] MEDS: REMDESIVIR 100 MG in Sodium Chloride 0.9% 250 ML 230 ML IV SCH (17:38)
[2023-09-14] MEDS: Ciprofloxacin Lactate/D5W 400 MG in Premix 1 BAG IVPB SCH (20:53)
[2023-09-14] MEDS: Carvedilol 25 MG TAB PO SCH (21:01)
[2023-09-14 23:06] LABS: Anion Gap 16 mmol/L (10-20); BUN (Urea Nitrogen) 16 mg/dL (9.8-20.1); Calc. Creatinine Clearance 73 mL/min (70-130); Calcium 8.2 mg/dL (7.8-10.44); Carbon Dioxide 22 mmol/L (23-31); Chloride 92 mmol/L (98-107); Estimated GFR 80; Glucose 175 mg/dL (83-110); Potassium 4.1 mmol/L (3.5-5.1); Sodium 126 mmol/L (136-145)
[2023-09-15 05:08] LABS: #Monocytes 0.9 thou/uL (0.11-0.59); #Neutrophils 17.8 thou/uL (1.40-6.50); %Basophils 0.1 % (0.0-1.0); %Lymphocytes 4.7 % (21.0-51.0); %Monocytes 4.7 % (0.0-10.0); %Neutrophils 90.1 % (42.0-75.0); Hematocrit 35.4 % (36.0-47.0); Hemoglobin 12.3 g/dL (12.0-16.0); Mean Corpuscular HGB CONC 34.7 g/dL (32.0-36.0); Mean Corpuscular Hemoglobin 30.1 pg (27.0-31.0); Mean Corpuscular Volume 86.8 fl (78.0-98.0); Mean Platelet Volume 9.4 fL (7.4-10.4); Platelet Count 308 10x3/uL (130-400); RBC Distribution Width 12.5 % (11.5-14.5); Red Blood Cell (RBC) Count 4.08 mill/uL (4.20-5.40); White Blood Cell (WBC) Count 19.7 10x3/uL (4.8-10.8)
[2023-09-15 05:29] LABS: Anion Gap 15 mmol/L (10-20); BUN (Urea Nitrogen) 14 mg/dL (9.8-20.1); Calc. Creatinine Clearance 85 mL/min (70-130); Calcium 8.2 mg/dL (7.8-10.44); Carbon Dioxide 23 mmol/L (23-31); Chloride 93 mmol/L (98-107); Estimated GFR 89; Glucose 146 mg/dL (83-110); Potassium 3.9 mmol/L (3.5-5.1); Sodium 127 mmol/L (136-145)
[2023-09-15] MEDS ORDERED: Non-Formulary Item 1 EACH (Esomeprazole Magnesium [Nexium] 40 MG Capsule.Dr) PO SCH (07:30)
[2023-09-15] MEDS ORDERED: IRBESARTAN 150 MG PO SCH (09:00)
[2023-09-15 09:04] LABS: ALT (SGPT) 77 U/L (8-55); AST (SGOT) 48 U/L (5-34); Albumin 3.6 g/dL (3.4-4.8); Alkaline Phosphatase 126 U/L (40-110); Bilirubin, Direct 0.1 mg/dL (0.1-0.3); Bilirubin, Total 0.2 mg/dL (0.2-1.2); Protein, Total 6.6 g/dL (5.8-8.1)
[2023-09-15] MEDS: Losartan 25 MG TAB PO SCH (09:26)
[2023-09-15] MEDS: Polyethylene Glycol 3350 17 GM Packet PO SCH (16:06)
[2023-09-15 17:35] LABS: Influenza A by NAA Not Detected (NotDetected); Influenza B by NAA Not Detected (NotDetected); RSV by NAA Not Detected (NotDetected); SARS-CoV-2 NAA Rapid Test DETECTED (NotDetected)
[2023-09-15] MEDS: guaiFENesin ER 600 MG TAB PO SCH (20:57)
[2023-09-16 05:45] LABS: #Monocytes 1.1 thou/uL (0.11-0.59); #Neutrophils 14.7 thou/uL (1.40-6.50); %Basophils 0.1 % (0.0-1.0); %Lymphocytes 6.5 % (21.0-51.0); %Monocytes 6.6 % (0.0-10.0); %Neutrophils 86.3 % (42.0-75.0); Hematocrit 37.3 % (36.0-47.0); Mean Corpuscular HGB CONC 34.9 g/dL (32.0-36.0); Mean Corpuscular Hemoglobin 30.3 pg (27.0-31.0); Mean Corpuscular Volume 86.9 fl (78.0-98.0); Mean Platelet Volume 9.8 fL (7.4-10.4); Platelet Count 289 10x3/uL (130-400); RBC Distribution Width 12.9 % (11.5-14.5); Red Blood Cell (RBC) Count 4.29 mill/uL (4.20-5.40); White Blood Cell (WBC) Count 17.1 10x3/uL (4.8-10.8)
[2023-09-16 06:33] LABS: ALT (SGPT) 66 U/L (8-55); AST (SGOT) 36 U/L (5-34); Albumin 3.6 g/dL (3.4-4.8); Alkaline Phosphatase 115 U/L (40-110); Anion Gap 13 mmol/L (10-20); BUN (Urea Nitrogen) 16 mg/dL (9.8-20.1); Bilirubin, Total 0.2 mg/dL (0.2-1.2); Calc. Creatinine Clearance 82 mL/min (70-130); Calcium 8.9 mg/dL (7.8-10.44); Carbon Dioxide 27 mmol/L (23-31); Chloride 96 mmol/L (98-107); Estimated GFR 89; Globulin 3.2 g/dL (2.4-3.5); Glucose 119 mg/dL (83-110); Potassium 3.7 mmol/L (3.5-5.1); Protein, Total 6.8 g/dL (5.8-8.1); Sodium 132 mmol/L (136-145)
[2023-09-16] MEDS: Polyethylene Glycol 3350 17 GM Packet PO SCH (08:01)
[2023-09-17 05:00] LABS: #Monocytes 1.2 thou/uL (0.11-0.59); %Basophils 0.1 % (0.0-1.0); %Eosinophils 0.1 % (0.0-10.0); %Lymphocytes 16.9 % (21.0-51.0); %Monocytes 8.2 % (0.0-10.0); %Neutrophils 74.2 % (42.0-75.0); Hematocrit 34.1 % (36.0-47.0); Hemoglobin 11.5 g/dL (12.0-16.0); Mean Corpuscular HGB CONC 33.7 g/dL (32.0-36.0); Mean Corpuscular Hemoglobin 30.3 pg (27.0-31.0); Mean Platelet Volume 9.6 fL (7.4-10.4); Platelet Count 282 10x3/uL (130-400); RBC Distribution Width 12.8 % (11.5-14.5); White Blood Cell (WBC) Count 14.8 10x3/uL (4.8-10.8)
[2023-09-17 05:04] LABS: Mean Corpuscular Volume 89.7 fl (78.0-98.0)
[2023-09-17 05:56] LABS: Anion Gap 11 mmol/L (10-20); BUN (Urea Nitrogen) 18 mg/dL (9.8-20.1); Calc. Creatinine Clearance 87 mL/min (70-130); Calcium 8.7 mg/dL (7.8-10.44); Carbon Dioxide 29 mmol/L (23-31); Chloride 95 mmol/L (98-107); Estimated GFR 90; Glucose 90 mg/dL (83-110); Potassium 3.3 mmol/L (3.5-5.1); Sodium 132 mmol/L (136-145)
[2023-09-17] MEDS: Potassium Chloride 20 MEQ TAB PO SCH (09:37)
[2023-09-17] MEDS: Loratadine 10 MG TAB PO SCH (14:48)
[2023-09-18] MEDS: hydrALAZINE 20 MG/ML VIAL SLOW IVP PRN (04:29)
[2023-09-18 04:30] LABS: #Neutrophils 10.4 thou/uL (1.40-6.50); %Basophils 0.1 % (0.0-1.0); %Lymphocytes 15.3 % (21.0-51.0); %Monocytes 7.3 % (0.0-10.0); %Neutrophils 76.5 % (42.0-75.0); Hematocrit 36.8 % (36.0-47.0); Hemoglobin 12.6 g/dL (12.0-16.0); Mean Corpuscular HGB CONC 34.2 g/dL (32.0-36.0); Mean Corpuscular Hemoglobin 30.1 pg (27.0-31.0); Mean Platelet Volume 9.7 fL (7.4-10.4); Platelet Count 296 10x3/uL (130-400); RBC Distribution Width 12.7 % (11.5-14.5); Red Blood Cell (RBC) Count 4.18 mill/uL (4.20-5.40); White Blood Cell (WBC) Count 13.6 10x3/uL (4.8-10.8)
[2023-09-18 05:00] LABS: Anion Gap 12 mmol/L (10-20); BUN (Urea Nitrogen) 19 mg/dL (9.8-20.1); Calc. Creatinine Clearance 77 mL/min (70-130); Calcium 9.1 mg/dL (7.8-10.44); Carbon Dioxide 28 mmol/L (23-31); Chloride 96 mmol/L (98-107); Estimated GFR 84; Glucose 104 mg/dL (83-110); Potassium 3.7 mmol/L (3.5-5.1); Sodium 132 mmol/L (136-145)
[2023-09-18] MEDS: Loratadine 10 MG TAB PO SCH (09:06)
[2023-09-18] MEDS: NIFEdipine XL 60 MG ER.TAB PO SCH (15:29)
[2023-09-18 16:08] VITALS: BP 145/73; TEMP 97.8
[2023-09-19] MEDS ORDERED: predniSONE 20 MG TAB PO SCH (08:00)
[2023-09-19] MEDS ORDERED: NIFEdipine XL 90 MG ER.TAB PO SCH (09:00)
== END 2023-09-18 18:22 | disposition home health service (06) | DRG 177 ==
LOC: ERS 11:02 → ERHOLD 14:05 → 2SE 09-14 00:15
PROVIDERS: ADMIT Internal Medicine; ATTEND Hospitalist
PROC: XW033E5 Introduction of Remdesivir Anti-infective into Peripheral Vein, Percutaneous Approach, New Technology Group 5 (ICD-10-PCS; principal; 2023-09-14)
DX: U07.1 COVID-19 (principal); J96.01 Acute respiratory failure with hypoxia; E22.2 Syndrome of inappropriate secretion of antidiuretic hormone; N17.9 Acute kidney failure, unspecified; E78.5 Hyperlipidemia, unspecified; K21.9 Gastro-esophageal reflux disease without esophagitis; E66.9 Obesity, unspecified; D63.1 Anemia in chronic kidney disease; E87.6 Hypokalemia; D72.829 Elevated white blood cell count, unspecified; T38.0X5A Adverse effect of glucocorticoids and synthetic analogues, initial encounter; I12.9 Hypertensive chronic kidney disease with stage 1 through stage 4 chronic kidney disease, or unspecified chronic kidney disease; E83.42 Hypomagnesemia; N18.2 Chronic kidney disease, stage 2 (mild); Z88.2 Allergy status to sulfonamides; Z88.0 Allergy status to penicillin; Z79.899 Other long term (current) drug therapy; Z90.49 Acquired absence of other specified parts of digestive tract; Z98.51 Tubal ligation status
CPT/HCPCS: 0241U; 36415; 36416; 71045; 71275; 80048; 80053; 80076; 82550; 83735; 83880; 84484; 85025; 85610; 85730; 86140; 86301; 93005; 94640; 96365; 96366; 96375; J0248; J0360; J0744; J1100; J1200; J1650; J1940; J2270; J2272; J2765; J3475; J7050; J7131; J7620; Q9967; S0028